=== PATIENT | female | born 1980 | race Hispanic/Latino ===

== ENCOUNTER 2018-06-21 20:15 | Emergency (ER) | payer OTHER ==
[~2018-06-21] VITALS: Ht 154.9 cm; Wt 68.5 kg
[~2018-06-21 20:15] MED LIST: DIAZEPAM5 MG PO; DULOXETINE HCL30 MG PO; FLOMAX0.4 MG PO; HYDROCODON-ACE1 EA10 PO; LORAZEPAM0.5 MG PO; PERCOCET 5-3251 EACH PO; ROBAXIN-750750 MG PO; VYVANSE30 MG PO
--- OUTSIDE RECORDS SUMMARY | 2018-06-21 20:18 | XMS ---
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 [facility] VISIT COUNT (12 MO.) 1 [facility] TOTAL 1 NOTE: Visits indicate total known visits. ED/UCC VISIT TRACKING (12 MO.) 06/21/2018 20:15 [facility] [place] TYPE: Emergency COMPLAINT: - L FLANK PAIN INPATIENT VISIT TRACKING (12 MO.) No inpatient visits to display in this time frame [email or web address]
[2018-06-21] MEDS ORDERED: IBUPROFEN200 MG PO (20:37)
[2018-06-21] MEDS ORDERED: FLOMAX0.4 MG PO (22:53)
[2018-06-21] MEDS ORDERED: PERCOCET 5-3251 EACH PO (22:53)
== END 2018-06-21 23:20 | disposition home or self-care (01) ==
LOC: ED 20:15
DX: N13.2 Hydronephrosis with renal and ureteral calculous obstruction (principal)
CPT/HCPCS: 74176; 80053; 81001; 84703; 85025; 96374; 96375; 99284-25; J1170; J1885; J2405

== ENCOUNTER 2018-11-09 05:28 | Emergency (ER) | payer OTHER ==
[~2018-11-09] VITALS: Ht 154.9 cm; Wt 68.0 kg
[~2018-11-09 05:28] MED LIST changes: +ADVIL200 MG PO; +AMITRIPTYLINE H25 MG PO; +ATIVAN1 MG PO; +CYCLOPHOSPHAMI500 MG IV; +DECADRON4 MG PO; +IBUPROFEN200 MG PO; +ONDANSETRON ODT8 MG PO; +TAXOTERE IV
--- OUTSIDE RECORDS SUMMARY | 2018-11-09 05:32 | XMS ---
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 E.D. VISIT COUNT (12 MO.) 2 [facility] TOTAL 2 NOTE: Visits indicate total known visits. ED/UCC VISIT TRACKING (12 MO.) 11/09/2018 05:29 [facility] TYPE: Emergency COMPLAINT: - LOW BACK PAIN/NO INJURY 06/21/2018 20:15 [facility] TYPE: Emergency COMPLAINT: - L FLANK PAIN DIAGNOSES: - Unspecified abdominal pain - Hydronephrosis with renal and ureteral calculous obstruction INPATIENT VISIT TRACKING (12 MO.) 09/14/2018 05:24 [facility] TYPE: Orthopedic DIAGNOSES: - Malignant neoplasm of upper-inner quadrant of left female breast 09/06/2018 13:34 Calli [facility] TYPE: Medical Surgical COMPLAINT: - BILATERAL MASTECTOMY [email or web address]
[2018-11-09] MEDS ORDERED: FAMOTIDINE40 MG PO (05:50)
[2018-11-09] MEDS ORDERED: ZOFRAN4 MG PO (07:04)
[2018-11-09] MEDS ORDERED: NORCO 5-325 TA1 EACH PO (07:04)
== END 2018-11-09 07:47 | disposition home or self-care (01) ==
LOC: ED 05:28
DX: N23 Unspecified renal colic (principal); Z85.3 Personal history of malignant neoplasm of breast; Z79.899 Other long term (current) drug therapy
CPT/HCPCS: 80053; 81001; 84703; 85025; 96374; 96375; 99284-25; J1170; J1885; J2405

== ENCOUNTER 2019-03-20 20:26 | Emergency (ER) | payer OTHER ==
[~2019-03-20] VITALS: Ht 154.9 cm; Wt 70.8 kg
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
--- OUTSIDE RECORDS SUMMARY | ~2019-03-20 | XMS | Encounter Summary ---
Demographics + + + | Address | [address] | | | [place] [address] | + + + | Home Phone | | + + + | Preferred Language | Unknown | + + + | Marital Status | | + + + | Holiness Affiliation | Unknown | + + + | Race | Unknown | + + + | Ethnic Group | Unknown | + + + Author + + + | Author | [facility] | | | and [place] | + + + | Organization | [facility] | | | and [place] | + + + | Address | Unknown | + + + | Phone | Unavailable | + + + Support + + + + + | Name | Relationship | Address | Phone | + + + + + | Martin Wetzel | ECON | [address] | | | | | [place] | | | | | [address] | | + + + + + Care Team Providers + +------+ + | 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 Estimator Name | Role | Phone | + +------+ + | Pcp, Prov Inactive | PCP | | + +------+ + Encounter Details +--------+ + + + + | Date | Type | Department | Care Team | Description | +--------+ + + + + | 07/15/ | Hospital | [facility] | Conversion | Abnormal findings on | | 2019 | Encounter | [facility] | Transaction, | diagnostic imaging | | | | MAMMOGRAPHY [address] | Provider Unknown | of breast | | | | [address] | [phone] | | | | | [place], [place] | | | | | | [address] | | | | | | [phone] | | | +--------+ + + + + Social [...] + + documented as of this encounter Medications at Time of Discharge + + + +---------+ + + | Medication | Sig | Dispensed | Refills | Start | End Date | | | | | | Date | | + + + +---------+ + + | | Take 1-2 tablets by | | 0 | 06/22/19 | | | oxyCODONE-acetaminop | mouth EVERY 4 TO 6 | | | 19 | | | hen (PERCOCET) 5-325 | HOURS NEEDED for | | | | | | mg per tablet | Pain. | | | | | + + + +---------+ + + | tamsulosin | Take 1 capsule by | | 0 | 06/22/19 | | | (FLOMAX) 0.4 mg CAPS | mouth Daily. | | | 19 | | + + + +---------+ + + | amitriptyline | | | 0 | 04/27/20 | | | (ELAVIL) 10 mg | | | | 16 | 9 | | tablet | | | | | | + + + +---------+ + + | cyclobenzaprine | Take 10 mg by mouth | | 0 | | | | (FLEXERIL) 10 mg | 3 times daily as | | | | 9 | | tablet | needed for Muscle | | | | | | | spasms. | | | | | + + + +---------+ + + | | Take 1 tablet by | | 0 | | | | HYDROcodone-acetamin | mouth every 6 hours | | | | 9 | | ophen (NORCO) 5-325 | as needed for Pain. | | | | | | mg per tablet | | | | | | + + + +---------+ + + | ibuprofen (ADVIL, | Take 400 mg by mouth | | 0 | | | | MOTRIN) 400 mg | every 6 hours as | | | | 9 | | tablet | needed for Pain. | | | | | + + + +---------+ + + | LORazepam (ATIVAN) | Take 1 tablet by | 12 | 0 | 06/06/19 | | | 1 mg tablet | mouth every 8 hours | tablet | | 17 | 9 | | | as needed for | | | | | | | Anxiety. | | | | | + + + +---------+ + + | VYVANSE 50 MG | | | 0 | 04/27/20 | | | capsule | | | | 16 | 9 | + + + +---------+ + + documented as of this encounter Progress Notes Conversion Transaction, Provider Unknown - 07/15/2018 1:10 PM PSTFormatting of this note m ight be different from the original. Nurse Progress Note by Radha Nunez RN at 07/15/181309 Author: Radha Nunez RN Service: (none) Author Type: Registered Nurse Filed: 07/15/181312 Date of Service: 07/15/181309 Status: Signed Owner Operator Tanker Truck Driver: Radha Nunez RN (Registered Nurse) Reviewed xanax discharge instructions with pt with verbalization of understanding. Paper c opy given to pt. docume nted in this encounter Plan of Treatment Not on filedocumented as of this encounter Procedures + +--------+ + + + | Procedure Name | Priori | Date/Time | Associated Diagnosis | Comments | | | ty | | | | + +--------+ + + + | TISSUE REQUEST FOR | Routin | 07/15/2018 | | Results for this | | PATHOLOGY (NON-ORD) | e | 4:40 PM | | procedure are in the | | | | PST | | results section. | + +--------+ + + + | MAMMO US GUIDED | Routin | 07/15/2018 | | Results for this | | BREAST BIOPSY | e | 2:15 PM | | procedure are in the | | | | PST | | results section. | + +--------+ + + + documented in this encounter Results Tissue Request For Pathology (07/15/2018 4:40 PM PST) + + | Specimen | + + | Soft tissue sample | | (specimen) | + + + + + | Narrative | Performed At | + + + | THIS IS AN ADDENDUM REPORT SPECIMEN(S): A LEFT BREAST AT | EXTERNAL LAB | | 8:00, 5 CM FN SPECIMEN(S): B LEFT BREAST AT 8:30, 3 CM FN SPECIMEN | | | SOURCE: A. LEFT BREAST AT 8:00, 5 CM FN B. LEFT BREAST AT 8:30, 3 CM | | | FN CLINICAL HISTORY: Multiple masses in right breast; BI-RADS 4. | | | A) Left breast US guided biopsy, 8 o'clock, 5 cm FN. B) Left | | | breast US guided biopsy, 8:30, 3 cm FN. FINAL PATHOLOGIC DIAGNOSIS: | | | A. Left breast at 8 o'clock, 5 cm from nipple, needle core biopsies: | | | - Infiltrating mammary carcinoma with the following features: - | | | Predicted Harinder histologic score: - Tubule formation score: | | | 3 of 3. - Nuclear grade score: 2 of 3. - Mitotic score: 1 | | | of 3. - Tumor grade: 2 of 3 (total score 6/9). - Longest | | | confluent tumor focus: 14 mm. - Lymphovascular invasion: | | | Suspicious for lymphovascular invasion. - Associated in situ | | | component: Present, intermediate grade DCIS, predominantly solid | | | form. - Microcalcifications: Present in neoplastic tissues. - | | | Estrogen receptor, progesterone receptor, HER-2 by FISH and Ki-67 | | | proliferating index: Pending, to be reported by addendum. B. | | | Left breast at 8:30, 3 cm from nipple, needle core biopsies: - | | | Infiltrating mammary carcinoma with the following features: - | | | Predicted Harinder histologic score: - Tubule formation score: | | | 3 of 3. - Nuclear grade score: 1 of 3. - Mitotic score: 1 | | | of 3. - Tumor grade: Low grade, 1 of 3 (total score 5/9). - | | | Longest confluent tumor focus: 9 mm. - Lymphovascular invasion: | | | Not identified. - Associated in situ component: Not | | | identified. - Microcalcifications: Not identified. - Estrogen | | | receptor, progesterone receptor, HER-2 by FISH and Ki-67 proliferating | | | index: Pending, to be reported by addendum. DS:emb:C1NR | | | MICROSCOPIC EXAMINATION: Histologic sections of all submitted blocks | | | are examined by light microscopy. These findings, together with the | | | gross examination, support the pathologic diagnosis. GROSS | | | DESCRIPTION: A. The specimen, received in formalin, labeled "left | | | breast at 8 o'clock, 5 cm FN," consists of three variegated mckeon-white | | | to mckeon-yellow fibroadipose tissue cores with a diameter of 0.2 cm and | | | a length ranging from 1.5 to 1.7 cm. The cores are dyed blue with a | | | diluted ink and entirely submitted in (A1). B. The specimen, | | | received in formalin, labeled "Wetzel," and designated "left breast | | | at 8:30, 3 cm FN," consists of three to mckeon-yellow fibroadipose tissue | | | cores with a diameter of 0.2 cm and a length ranging from 1.3 to 1.7 | | | cm. The cores are dyed blue with a diluted ink and entirely | | | submitted in (B1). The cold ischemic time for both specimens | | | cannot be determined because of lack of information and the | | | approximate time in formalin is 6 hours. am:AMB:mrf PERFORMING | | | LABORATORY: The technical component was performed by [facility] | | | [facility], [address] [place] [id number] (It Manager: | | | Bonnie Lizarraga MD; CLIA# [id number]). Professional interpretation was | | | performed by [facility], [facility], [facility] | | | [place] [address] (It Manager: Aydin | | | Morelia Deleon; CLIA#: [id number]). ADDITIONAL NOTES: | | | Immunohistochemical and/or in situ hybridization studies were | | | performed on this case with the appropriate positive controls that | | | react as expected. This test was developed and its performance | | | characteristics determined by [facility]. It has not been | | | cleared or approved by the U.S. Food and Drug Administration. The | | | FDA has determined that such clearance or approval is not necessary. | | | This test is used for clinical purposes. It should not be regarded | | | as investigational or for research. [facility] is certified | | | under the Clinical Laboratory Improvement Amendments of 1988 (CLIA) | | | as qualified to perform high complexity clinical laboratory testing. | | | This assay has not been validated for specimens that have been | | | decalcified. REASON FOR ADDENDUM: To add results of additional | | | testing. ADDENDUM COMMENT: E-Cadherin stains on both blocks A1 and | | | B1 show strong positive staining consistent with ductal | | | differentiation. All controls worked appropriately. ADDENDUM FINAL | | | PATHOLOGIC DIAGNOSIS: A. Estrogen receptor: Positive. | | | - 95% of tumor cells with strong average intensity. | | | Progesterone receptor: Positive. - 20% of tumor cells with | | | strong average intensity. Ki-67 proliferation index: | | | 11%. B. Estrogen receptor: Positive. - 95% of | | | tumor cells with strong average intensity. Progesterone | | | receptor: Positive. - 40% of tumor cells with moderate | | | average intensity. Ki-67 proliferation index: 4%. | | | DS:emb ADDENDUM MICROSCOPIC EXAMINATION: Blocks: A1, B1 The | | | cold ischemia time is unknown. The fixative is 10% NBF. The length | | | of fixation is 6 hrs, meeting ASCO/CAP guidelines. Estrogen | | | receptor clone SP1 and progesterone receptor clone 1E2 by [employer] | | | [employer] [place], [place]. Detection: HRP Polymer | | | Detection on the [employer] Immun[employer]ainer with appropriate controls. | | | Nuclear immunoreactivity of 1% or greater is considered positive by | | | ASCO/CAP guidelines. Internal control cells for ER are | | | positive for A, absent for B. Internal control cells for PA | | | are positive for A, absent for B. A Ki-67 proliferation index is | | | performed, and 500 cells are counted. Technical testing is | | | performed at [facility], [address] [place] [address] | | | (It Manager: Bonnie Lizarraga MD; CLIA# [id number]). REASON FOR | | | ADDENDUM: To add results of additional testing. ADDENDUM | | | PATHOLOGIC DIAGNOSIS: A. HER-2 protein by IHC, left breast, 8 | | | o'clock: - Equivocal; IHC score 2+. B. HER-2 protein by IHC, | | | left breast, 8:30: - Equivocal; IHC score 2+. ADDENDUM COMMENT: | | | In view of the equivocal IHC result, reflex testing for HER-2 | | | amplification by FISH has been ordered and will be reported by | | | addendum. TTP:caw ADDENDUM MICROSCOPIC EXAMINATION: Blocks: A1 | | | and B1. The fixation is 10% buffered formalin. The length of | | | fixation is 6 hours, meeting ASCO/CAP guidelines. HER-2 protein | | | expression by immunohistochemistry using the FDA-approved HER-2 | | | Pathway is performed at [facility], at the | | | request of Dr. Rico. Standardized batch control materials | | | react appropriately. The presence of tumor is confirmed. Scoring | | | is according to ASCO/CAP 2018 guidelines. A. Weak to moderate | | | complete membrane staining observed in greater than 10% of tumor | | | cells; score 2+. B. Weak to moderate complete membrane staining | | | observed in greater than 10% of tumor cells; score 2+. TTP:caw | | | Professional interpretation was performed by [facility], [id number] | | | [place] [address] (It Manager: | | | Brendan Shaffer D.O.; CLIA#: [id number]). REASON FOR ADDENDUM: To | | | add results of additional testing. ADDENDUM PATHOLOGIC DIAGNOSIS: | | | A. HER-2 gene by FISH, left breast, 8 o'clock: - Negative for | | | amplification. B. HER-2 gene by FISH, left breast 8:30: - | | | Negative for amplification. ARW:caw ADDENDUM MICROSCOPIC | | | EXAMINATION: Specimen type: Core biopsy. Blocks: A1 and B1. | | | Cold ischemia time: Unknown. The fixation is 10% buffered formalin. | | | The length of fixation is 6 hours, meeting ASCO/CAP guidelines. | | | Scoring method: Manual. Fluorescence in situ hybridization | | | (FISH) study (multiplex probe) for HER-2 gene amplification using the | | | [employer] kit was performed at [facility], | | | on a reflex basis. The assay has not been validated for | | | decalcified specimens. Controls were processed in the same batch as | | | the patient and reacted appropriately. The patient's sample was | | | considered adequate for interpretation. A. - Number | | | of nuclei counted: 40. - Number of HER-2 signals | | | counted: 106. - Number of CEP 17 signals counted: 63. | | | - Average number of HER-2 signals per cell: 2.65. | | | - Average number of CEP 17 signals per cell: 1.58. | | | - HER-2:CEP 17 ratio: 1.68. Negative for HER-2 | | | amplification (ratio less than 2.0 or average HER-2 signals per cell | | | less than 4.0 regardless of ratio). B. - Number of | | | nuclei counted: 40. - Number of HER-2 signals counted: | | | 98. - Number of CEP 17 signals counted: 62. - | | | Average number of HER-2 signals per cell: 2.45. - | | | Average number of CEP 17 signals per cell: 1.55. - | | | HER-2:CEP 17 ratio: 1.58. Negative for HER-2 amplification | | | (ratio less than 2.0 or average HER-2 signals per cell less than 4.0 | | | regardless of ratio). ARW:caw Professional interpretation was | | | performed by [facility], [id number] [place] [address] | | | [place] [address] (It Manager: eLonel BullardOSharon; CLIA#: | | | [id number]). Diagnostician: Jacek Rico MD Pathologist | | | Diagnostician: Anabel Webb MD Pathologist Diagnostician: Brendan Bentley | | | Edmund DO Pathologist Electronically Signed 07/21/2018 | | + + + + +---------+ + + | Performing | Address | City/State/Zipcode | Phone Number | | Organization | | | | + +---------+ + + | EXTERNAL LAB | | | | + +---------+ + + [facility] Ultrasound Guided Breast Biopsy (07/15/2018 2:15 PM PST) + + | Specimen | + + | | + + + + | Addenda | + + | Addendum by Kevin Barragan DO on 07/19/2018 1:32 PM ADDENDUM BEGINS Pathology | | at site A demonstrates infiltrating mammary carcinoma that is concordant with imaging | | findings. Pathology of site B demonstrates infiltrating mammary carcinoma which is | | concordant with imaging. Given that the patient had multiple sonographic lesions a | | breast MRI would be recommended for staging. Follow-up with a surgeon/oncologist | | would also be recommended. Signed by: Kevin Barragan Sign Date/Time: 07/19/2018 1:29 PM | | ADDENDUM ENDS | + + + + + | Impressions | Performed At | + + + | 1. Successful ultrasound-guided core needle biopsy, left breast 2 | | | sites, the 1st at the 8 o'clock position of the left breast 5 cm from | | | the nipple with the 2nd at the 8:30 position of the left breast 3 cm | | | from the nipple.. 2. Histology is pending. An addendum to this | | | dictation will be issued when pathology results are available with | | | recommendation for appropriate follow up including additional imaging | | | and/or intervention. Signed by: Kevin Barragan Sign Date/Time: | | | 07/15/2018 2:42 PM | | + + + + + + | Narrative | Performed At | + + + | UNILATERAL FOLLOWUP PROCEDURE DIGITAL; ULTRASOUND BREAST NEEDLE | | | BIOPSY CLINICAL INFORMATION: Left breast s/p Ultrasound guided | | | biopsy for clip placement COMPARISON: 07/05/2018 PROCEDURE: The | | | procedure, risks and benefits were explained to the patient and | | | informed consent obtained. Standard ultrasound-guided biopsy technique | | | was used. Initial survey of the breast was performed to localize | | | area of concern. A timeout was performed. Site A: Size and Location | | | of lesion: 8 o'clock left breast 5 cm from the nipple measuring | | | approximately 1.1 cm. Anesthesia: The area was anesthetized with a | | | local anesthetic. Device: Bard 12 gauge Number of Cores obtained: 3 | | | Complications: The patient tolerated the procedure without immediate | | | complication. Clip type: Micromarker Site B: Size and Location of | | | lesion: 8:30 position 3 cm from the nipple measuring 11 mm. | | | Anesthesia: The area was anesthetized with a local anesthetic. | | | Device: Bard 12 gauge Number of Cores obtained: 3 Complications: The | | | patient tolerated the procedure without immediate complication. | | | Clip type: Micromarker Post-biopsy mammogram: A post-procedural | | | mammogram was obtained to confirm the marker is at the expected site | | | of biopsy. | | + + + + + | Procedure Note | + + | Fabien, Rad Conversion - 12/20/2018 10:09 PM PDT UNILATERAL FOLLOWUP PROCEDURE DIGITAL; | | ULTRASOUND BREAST NEEDLE BIOPSYCLINICAL INFORMATION:Left breast s/p Ultrasound guided | | biopsy for clip placementCOMPARISON:07/05/2018PROCEDURE:The procedure, risks and | | benefits were explained to the patient andinformed consent obtained. Standard | | ultrasound-guided biopsy techniquewas used. Initial survey of the breast was performed | | to localize areaof concern. A timeout was performed.Site A:Size and Location of lesion: | | 8 o'clock left breast 5 cm from the nipplemeasuring approximately 1.1 cm.Anesthesia: The | | area was anesthetized with a local anesthetic.Device: Bard 12 gaugeNumber of Cores | | obtained: 3Complications: The patient tolerated the procedure without | | immediatecomplication.Clip type: MicromarkerSite B:Size and Location of lesion: 8:30 | | position 3 cm from the nipplemeasuring 11 mm.Anesthesia: The area was anesthetized with | | a local anesthetic.Device: Bard 12 gaugeNumber of Cores obtained: 3Complications: The | | patient tolerated the procedure without immediatecomplication.Clip type: | | MicromarkerPost-biopsy mammogram: A post-procedural mammogram was obtained toconfirm the | | marker is at the expected site of biopsy.IMPRESSION: 1. Successful ultrasound-guided | | core needle biopsy, left breast 2sites, the 1st at the 8 o'clock position of the left | | breast 5 cm fromthe nipple with the 2nd at the 8:30 position of the left breast 3 cmfrom | | the nipple..2. Histology is pending.An addendum to this dictation will be issued when | | pathology results areavailable with recommendation for appropriate follow up | | includingadditional imaging and/or intervention.Signed by: Lokesh Barragan Date/Time: | | 07/15/2018 2:42 PM | |measuring 11 mm. | |Anesthesia: The area was anesthetized with a local anesthetic. | |Device: Bard 12 gauge | |Number of Cores obtained: 3 | |Complications: The patient tolerated the procedure without immediate | |complication. | |Clip type: Micromarker | |Post-biopsy mammogram: A post-procedural mammogram was obtained to | |confirm the marker is at the expected site of biopsy. | |IMPRESSION: | |1. Successful ultrasound-guided core needle biopsy, left breast 2 | |sites, the 1st at the 8 o'clock position of the left breast 5 cm from | |the nipple with the 2nd at the 8:30 position of the left breast 3 cm | |from the nipple.. | |2. Histology is pending. | |An addendum to this dictation will be issued when pathology results are | |available with recommendation for appropriate follow up including | |additional imaging and/or intervention. | |Signed by: Kevin Barragan | |Sign Date/Time: 07/15/2018 2:42 PM | + + documented in this encounter Visit Diagnoses + + | Diagnosis | + + | Abnormal findings on diagnostic imaging of breast Other (abnormal) findings on | | radiological examination of breast | + + documented in this encounter
--- OUTSIDE RECORDS SUMMARY | ~2019-03-20 | XMS | Clinical Summary ---
Demographics + + + | Address | [address] | | | [place] [address] | + + + | Home Phone | | + + + | Preferred Language | Unknown | + + + | Marital Status | | + + + | Congregation Affiliation | Unknown | + + + | Race | Unknown | + + + | Ethnic Group | Unknown | + + + Author + + + | Author | [facility] (Historical as of | | | 12-24-18) | + + + | Organization | [facility] (Historical as of | | | 12-24-18) | + + + | Address | Unknown | + + + | Phone | Unavailable | + + + Support + + + + + | Name | Relationship | Address | Phone | + + + + + | David Longo | ECON | [address] | | | | | [place], [place] | | | | | [address] | | + + + + + Care Team Providers + +------+ + | Care Legal Records Manager Name | Role | Phone | + +------+ + | Ling Caballero | PP | | + +------+ + Allergies No Known Allergies Current Medications + + +--------+---------+------+------+-------+ | Prescription | Sig. | Disp. | Refills | Star | End | Statu | | | | | | t | Date | s | | | | | | Date | | | + + +--------+---------+------+------+-------+ | BIOTIN PO | Take by mouth. | | | | | Activ | | | | | | | | e | + + +--------+---------+------+------+-------+ | amitriptyline | Take 1 tablet by | 30 | 2 | 04/1 | | Activ | | (ELAVIL) 25 MG | mouth nightly for 30 | tablet | | 6/20 | | e | | tabletIndications: | days. | | | 19 | | | | Anxiety | | | | | | | + + +--------+---------+------+------+-------+ + + +-------+ +------+------+-------+ | Hospital, Clinic, or | Ordered | Route | Frequency | Star | End | Statu | | Other Facility | Dose | | | t | Date | s | | Administered | | | | Date | | | | Medication | | | | | | | + + +-------+ +------+------+-------+ | triamcinolone | 40 mg | IX | Once | 11/08 | 11/08 | Activ | | acetonide | | | | 5/20 | 5/20 | e | | (KENALOG-40) | | | | 18 | 38 | | | injection 40 | | | | | | | | mgIndications: Right | | | | | | | | shoulder pain, | | | | | | | | unspecified | | | | | | | | chronicity | | | | | | | + + +-------+ +------+------+-------+ | bupivacaine (PF) | 3 mL | IX | Once | 11/08 | 11/08 | Activ | | (MARCAINE) 0.25 % | | | | 09/26 | 20 | e | | injection 3 | | | | 18 | 38 | | | mLIndications: Right | | | | | | | | shoulder pain, | | | | | | | | unspecified | | | | | | | | chronicity | | | | | | | + + +-------+ +------+------+-------+ | triamcinolone | 40 mg | IX | Once | / | | Activ | | acetonide | | | | 0/20 | | e | | (KENALOG-40) | | | | 18 | | | | injection 40 | | | | | | | | mgIndications: Right | | | | | | | | shoulder pain, | | | | | | | | unspecified | | | | | | | | chronicity | | | | | | | + + +-------+ +------+------+-------+ | bupivacaine 0.25 % | 3 mL | IX | Once | / | | Activ | | (MARCAINE) 0.25 % | | | | 0/20 | | e | | injection (MDV) 3 | | | | 18 | | | | mLIndications: Right | | | | | | | | shoulder pain, | | | | | | | | unspecified | | | | | | | | chronicity | | | | | | | + + +-------+ +------+------+-------+ Active Problems + + + | Problem | Noted Date | + + + | Lymphoma, Hodgkin's (HCC) | 08/26/2018 | + + + | Numbness | 08/10/2018 | + + + | 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, | 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 (HCC) | | + + + | History of Hodgkin's lymphoma | 08/02/2018 | + + + | Right shoulder pain | 11/30/2017 | + + + Family History + + +------+ + | Medical History | Relation | Name | Comments | + + +------+ + | Cancer | Maternal | | | | | Grandmoth | | | | | er | | | + + +------+ + | Breast cancer | Paternal | | | | | Aunt | | | + + +------+ + | Ovarian cancer | Neg Hx | | | + + +------+ + + +------+--------+ + | Relation | Name | Status | Comments | + +------+--------+ + | Maternal Grandmother | | | | + +------+--------+ + | Paternal Aunt | | | | + +------+--------+ + Social History + +-------+ +--------+------+ | [...] + +---------+ + | Alcohol Use | Drinks/We | oz/Week | Comments | | | ek | | | + + +---------+ + | Yes | | | | + + +---------+ + + + + | Sex Assigned at | Date Recorded | | | | + + + | Not on file | | + + + Last Filed Vital Signs + + + + | Vital Sign | Reading | Time Taken | + + + + | Blood Pressure | 120/80 | 09/12/2018 1:21 PM PDT | + + + + | Pulse | 98 | 09/12/2018 1:21 PM PDT | + + + + | Temperature | 37.2 C (99 F) | 09/12/2018 1:21 PM PDT | + + + + | Respiratory Rate | 16 | 09/12/2018 1:21 PM PDT | + + + + | Oxygen Saturation | 99% | 09/12/2018 1:21 PM PDT | + + + + | Inhaled Oxygen | - | - | | Concentration | | | + + + + | Weight | 70.3 kg (155 lb 0.6 | 09/12/2018 1:21 PM PDT | | | oz) | | + + + + | Height | 153.7 cm (5' 0.5") | 09/12/2018 1:21 PM PDT | + + + + | Body Mass Index | 29.78 | 09/12/2018 1:21 PM PDT | + + + + Plan of Treatment + + + + + | Health Maintenance | Due Date | Last Done | Comments | + + + + + | Vaccine: | | | | | Dtap/Tdap/Td (1 - | 1 | | | | Tdap) | | | | + + + + + | Vaccine: | | | | | Pneumococcal 19-64 | 1 | | | | Highest Risk (1 of 3 | | | | | - PCV13) | | | | + + + + + | Cervical Cancer | | | | | Screening (Pap) | 2 | | | + + + + + | Vaccine: Influenza | | | | | (#1) | 9 | | | + + + + + Results Not on filefrom Last 3 Months Insurance + +--------+ +------+-------+---------+ | Payer | Benefi | Subscriber | Type | Phone | Address | | | t Plan | ID | | | | | | / | | | | | | | Group | | | | | + +--------+ +------+-------+---------+ | [employer] | ODS | [id number] | | | | | | HEALTH | | | | | | | PLAN | | | | | + +--------+ +------+-------+---------+ | [employer] [facility] | PROVID | [id number] | PPO | | | | PLAN | ENCE | | | | | | | HEALTH | | | | | | | PLAN | | | | | + +--------+ +------+-------+---------+ + +--------+ +--------+ + + | Guarantor Name | Accoun | Relation to | Date | Phone | Billing Address | | | t Type | Patient | of | | | | | | | | | | + +--------+ +--------+ + + | PAT LONGO | Person | Self | [birth year] | Home: | [address] | | | [place] | | 1981 | [phone] [place] | | | caren | | | [phone] | [phone] | + +--------+ +--------+ + +
--- OUTSIDE RECORDS SUMMARY | ~2019-03-20 | XMS | Encounter Summary ---
Demographics + + + | Address | [address] | | | [place] [address] | + + + | Home Phone | | + + + | Preferred Language | Unknown | + + + | Marital Status | | + + + | Druze Affiliation | Unknown | + + + | Race | Unknown | + + + | Ethnic Group | Unknown | + + + Author + + + | Author | [facility] | | | and [place] | + + + | Organization | [facility] | | | and [place] | + + + | Address | Unknown | + + + | Phone | Unavailable | + + + Support + + + + + | Name | Relationship | Address | Phone | + + + + + | Martin Wetzel | ECON | [address] | | | | | [place], [place] | | | | | [address] | | + + + + + Care Team Providers + +------+ + | Care Kraft Mill Operator Name | Role | Phone | + +------+ + | Ling Caballero | PCP | | + +------+ + Encounter Details +--------+ + + + + | Date | Type | Department | Care Team | Description | +--------+ + + + + | 12/09/ | Orders Only | [facility] | Provider, | | | 2018 | | SYSTEM GENERIC OP | [address] | | | | | [address] | [place] | | | | | [address] [place], [place] | [place] [address] | | | | | [address] | | | | | | [phone] | | | +--------+ + + + [...] Not on filedocumented as of this encounter Visit Diagnoses Not on filedocumented in this encounter"
--- OUTSIDE RECORDS SUMMARY | ~2019-03-20 | XMS | Encounter Summary ---
Demographics + + + | Address | [address] | | | [place] [address] | + + + | Home Phone | | + + + | Preferred Language | Unknown | + + + | Marital Status | | + + + | Amish Affiliation | Unknown | + + + | Race | Unknown | + + + | Ethnic Group | Unknown | + + + Author + + + | Author | [facility] | | | and [place] | + + + | Organization | [facility] | | | and [place] | + + + | Address | Unknown | + + + | Phone | Unavailable | + + + Support + + + + + | Name | Relationship | Address | Phone | + + + + + | Martin Wetzel | ECON | [address] | | | | | [place] | | | | | [address] | | + + + + + Care Team Providers + +------+ + | Care Banking Representative Name | Role | Phone | + +------+ + | Pcp, Prov Inactive | PCP | | + +------+ + Encounter Details +--------+ + + + + | Date | Type | Department | Care Team | Description | +--------+ + + + + | 07/15/ | Hospital | [facility] | Conversion | Abnormal findings on | | 2019 | Encounter | [facility] | Transaction, | diagnostic imaging | | | | [address] | Provider Unknown | of breast | | | | [address] | [phone] | | | | | [place], [place] | | | | | | [address] | | | | | | [phone] | | | +--------+ + + + [...] filedocumented as of this encounter Visit Diagnoses + + | Diagnosis | + + | Abnormal findings on diagnostic imaging of breast Other (abnormal) findings on | | radiological examination of breast | + + documented in this encounter"
--- OUTSIDE RECORDS SUMMARY | ~2019-03-20 | XMS | Clinical Summary ---
Demographics + + + | Address | [address] | | | [place] [address] | + + + | Home Phone | | + + + | Preferred Language | Unknown | + + + | Marital Status | | + + + | Temple Affiliation | Unknown | + + + | Race | Unknown | + + + | Ethnic Group | Unknown | + + + Author + + + | Author | [facility] | | | and [place] | + + + | Organization | [facility] | | | and [place] | + + + | Address | Unknown | + + + | Phone | Unavailable | + + + Support + + + + + | Name | Relationship | Address | Phone | + + + + + | Martin Wetzel | ECON | [address] | | | | | [place] | | | | | [address] | | + + + + + Care Team Providers + +------+ + | Care Oil Dispenser Name | Role | Phone | + +------+ + | Ling Caballero | PCP | | + +------+ + Allergies No Known Allergies Medications + + + +---------+------+------+-------+ | Medication | Sig | Dispensed | Refills | Star | End | Statu | | | | | | t | Date | s | | | | | | Date | | | + + + +---------+------+------+-------+ | amitriptyline | Take 10 mg by mouth | | 0 | | | Activ | | (ELAVIL) 10 mg | nightly as needed | | | | | e | | tablet | for Insomnia. | | | | | | + + + +---------+------+------+-------+ | BIOTIN 5000 PO | Take 5,000 mcg by | | 0 | | | Activ | | | mouth Daily. | | | | | e | + + + +---------+------+------+-------+ | acetaminophen | Take 2 tablets by | 60 | 0 | 05/1 | | Activ | | (TYLENOL) 500 mg | mouth every 6 hours. | tablet | | 0/20 | | e | | tablet | | | | 19 | | | + + + +---------+------+------+-------+ | bacitracin 500 | Apply to BOAZ drains | 1 | 0 | 05/1 | | Activ | | UNIT/GM ointment | daily with dressing | Applicati | | 0/20 | | e | | | changes | on | | 19 | | | + + + +---------+------+------+-------+ | docusate-senna | Take 2 tablets by | 60 | 0 | 05/1 | | Activ | | (SENOKOT-S) 50-8.6 | mouth 2 times daily. | tablet | | 0/20 | | e | | mg per tablet | | | | 19 | | | + + + +---------+------+------+-------+ | ondansetron | Take 1 tablet by | 10 | 0 | 05/0 | | Activ | | (ZOFRAN ODT) 4 mg | mouth every 6 hours | tablet | | 9/20 | | e | | disintegrating | as needed for Nausea | | | 19 | | | | tablet | or Vomiting. | | | | | | + + + +---------+------+------+-------+ | oxyCODONE | Take 1-3 tablets by | 60 | 0 | 05/0 | | Activ | | (ROXICODONE) 5 mg | mouth every 3 hours | tablet | | 9/20 | | e | | tablet | as needed for Pain. | | | 19 | | | + + + +---------+------+------+-------+ | fluconazole | Take 1 tablet by | | 0 | 04/0 | | Activ | | (DIFLUCAN) 150 mg | mouth Daily. For 1 | | | 2/20 | | e | | tablet | week | | | 19 | | | + + + +---------+------+------+-------+ | ibuprofen | Take 1 tablet by | | 0 | 03/1 | | Activ | | (ADVIL,MOTRIN) 800 | mouth 3 times daily. | | | 1/20 | | e | | MG tablet | | | | 19 | | | + + + +---------+------+------+-------+ | metroNIDAZOLE | Take 1 tablet by | | 0 | | | Activ | | (FLAGYL) 500 MG | mouth 2 times daily. | | | | | e | | tablet | For 7 days | | | | | | + + + +---------+------+------+-------+ | | Take 1-2 tablets by | | 0 | 02/1 | | Activ | | oxyCODONE-acetaminop | mouth EVERY 4 TO 6 | | | 3/20 | | e | | hen (PERCOCET) 5-325 | HOURS NEEDED for | | | 19 | | | | mg per tablet | Pain. | | | | | | + + + +---------+------+------+-------+ | | Take 1 tablet by | | 0 | 03/1 | | Activ | | sulfamethoxazole-tri | mouth 2 times daily. | | | 120 | | e | | methoprim (BACTRIM | | | | 19 | | | | DS) 800-160 mg per | | | | | | | | tablet | | | | | | | + + + +---------+------+------+-------+ | tamsulosin | Take 1 capsule by | | 0 | 02/1 | | Activ | | (FLOMAX) 0.4 mg CAPS | mouth Daily. | | | 3/20 | | e | | | | | | 19 | | | + + + +---------+------+------+-------+ | amitriptyline | amitriptyline 25 mg | | 0 | 04/1 | | Activ | | (ELAVIL) 25 mg | tablet | | | 620 | | e | | tablet | | | | 19 | | | + + + +---------+------+------+-------+ | amitriptyline | Take 1 tablet by | | 0 | 08/08 | | Activ | | (ELAVIL) 25 mg | mouth every morning. | | | 10/27 | | e | | tablet | | | | 19 | | | + + + +---------+------+------+-------+ Active Problems + + + | Problem | Noted Date | + + + | Pain in pelvis | 08/30/2018 | + + + | Lymphoma, Hodgkin's | 08/26/2018 | + + + + + | Cancer Staging: Clinical: Stage III (Hodgkin lymphoma, A - | | Asymptomatic) - Unsigned | + + + + + | Numbness | 08/10/2018 | + + + | History of Hodgkin's lymphoma | 08/02/2018 | + + + | 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, | 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 | | + + + + + | Cancer Staging: Pathologic: Stage IB (pT2, pN0, cM0, G3, ER+, | | MN+, HER2-) - Unsigned | + + + + + | Right shoulder pain | 11/30/2017 | + + + Social History + +-------+ [...] recent travel history available. | + + Last Filed Vital Signs + + + + + | Vital Sign | Reading | Time Taken | Comments | + + + + + | Blood Pressure | 117/76 | 09/17/2018 9:42 AM | | | | | PDT | | + + + + + | Pulse | 98 | 09/17/2018 9:42 AM | | | | | PDT | | + + + + + | Temperature | 37 C (98.6 F) | 09/17/2018 9:42 AM | | | | | PDT | | + + + + + | Respiratory Rate | 18 | 09/17/2018 9:42 AM | | | | | PDT | | + + + + + | Oxygen Saturation | 93% | 09/17/2018 9:42 AM | | | | | PDT | | + + + + + | Inhaled Oxygen | - | - | | | Concentration | | | | + + + + + | Weight | 70.8 kg (156 lb) | 09/14/2018 5:50 AM | | | | | PDT | | + + + + + | Height | 152.4 cm (5') | 09/14/2018 5:50 AM | | | | | PDT | | + + + + + | Body Mass Index | 30.47 | 09/14/2018 5:50 AM | | | | | PDT | | + + + + + Plan of Treatment + + + + + | Health Maintenance | Due Date | Last Done | Comments | + + + + + | Vaccine: | | | | | Pneumococcal 19-64 | 8 | | | | (1 of 3 - PCV13) | | | | + [...] | | + + + + + Implants + +--------+--------+ +--------+--------+--------+ | Implanted | Type | Area | Manufacture | Device | Shelf | Model | | | | | r | | Expira | / | | | | | | Identi | tion | Serial | | | | | | fier | Date | / Lot | + +--------+--------+ +--------+--------+--------+ | Taxonomist Anastc Imp 2.0mm - | Generi | Left: | SYNOVIS | | 10/15/ | GEM-[id number] | | [id number]: Qty: 1 | c | Breast | MICRO CO | | 2022 | 52 / | | on 09/14/2018 by Faraz, | | | ALLIANCE - | | | /[id number] | | Olivia Lopez MD at [facility] | | | [place] | | | [phone] | | [facility] | | | | | | [phone] | + +--------+--------+ +--------+--------+--------+ | Taxonomist Anastc Imp 3.0mm - | Generi | Right: | SYNOVIS | | 02/14/ | GEM-27 | | [id number]: Qty: 1 | c | | MICRO CO | | 2022 | 54 / | | on 09/14/2018 by Faraz, | | Breast | ALLIANCE - | | | /[id number] | | Olivia Lopez MD at [facility] | | | [place] | | | [phone] | | [facility] | | | | | | [address]50 | + +--------+--------+ +--------+--------+--------+ | Mesh Ultrapro [id number] - | Mesh | Anteri | JJHCS | | 08/15/ | [id number] / | | [id number]: Qty: 1 | | or: | ETHICON | | 2023 | | | on 09/14/2018 by Faraz, | | Abdome | ENDO -ANASTASIA | | | /[id number] | | Olivia Lopez MD at [facility] | | n | [phone] | | | SA0 | | [facility] | | | ETHE | | | | + +--------+--------+ +--------+--------+--------+ Results Not on filefrom Last 3 Months Insurance + +--------+ +--------+ +---------+------+ | Payer | Benefi | Subscriber | Effect | Phone | Address | Type | | | t Plan | ID | madelin | | | | | | / | | Dates | | | | | | Group | | | | | | + +--------+ +--------+ +---------+------+ | [employer] | PHP | [id number] | 12/09/19 | [phone] | | PPO | | PLAN | PEBB | | 15-Pre | 5 | | | | | PROV | | sent | | | | | | CHOICE | | | | | | + +--------+ +--------+ +---------+------+ + +--------+ +--------+ + + | Guarantor Name | Accoun | Relation to | Date | Phone | Billing Address | | | t Type | Patient | of | | | | | | | | | | + +--------+ +--------+ + + | aPt Wetzel | Person | Self | [birth year] | | [address] | | | al/Fam | | 1980 | [phone] | [place] [address] | | | caren | | | 8 (Home) | | + +--------+ +--------+ + + | Pat Wetzel | Third | Self | [birth year] | | [address] | | | [employer] | | 1980 | [address] | [place] [address] | | | Liabil | | | 8 (Home) | | | | ity | | | | | + +--------+ +--------+ + + Advance Directives + + + + + | Type | Date Recorded | Patient | Explanation | | | | Electric Utility Lineworker | | + + + + + | Power of | | | | | Sheet Metal Pattern Cutter | | | | + + + + + | Advance | 09/14/2018 5:25 | | | | Directive | AM | | | + + + + + + + + + + | Code Status | Date | Date | Comments | | | Activated | Inactivated | | + + + + + | Full Code | 09/14/2018 | 09/17/2018 | | | | 8:01 PM | 5:33 PM | | + + + + +"
--- OUTSIDE RECORDS SUMMARY | ~2019-03-20 | XMS | Clinical Summary ---
Demographics + + + | Address | [address] | | | [place] [address] | + + + | Home Phone | | + + + | Preferred Language | Unknown | + + + | Marital Status | | + + + | Religion Affiliation | Unknown | + + + | Race | Unknown | + + + | Ethnic Group | Unknown | + + + Author + + + | Author | [facility] (Historical as of | | | 12-24-18) | + + + | Organization | [facility] (Historical as of | | | 12-24-18) [...] [place], [place] | | | | | [address] | | + + + + + Care Team Providers + +------+ + | Care Hotel Concierge Name | Role | Phone | + [...] | [employer] | ODS | [id number] | | | | | | HEALTH | | | | | | | PLAN | | | | | + +--------+ +------+-------+---------+ | [employer] [facility] | PROVID | [id number] | PPO | | | | PLAN [...] | caren | | | [phone] | [phone] | + +--------+ +--------+ + +
--- OUTSIDE RECORDS SUMMARY | ~2019-03-20 | XMS | Encounter Summary ---
Demographics + + + | Address | [address] | | | [place] [address] | + + + | Home Phone | | + + + | Preferred Language | Unknown | + + + | Marital Status | | + + + | Presybeterian Affiliation | Unknown | + + + | Race | Unknown | + + + | Ethnic Group | Unknown | + + + Author + + + | Author | [facility] | | | and [place] | + + + | Organization | [facility] | | | and [place] | + + + | Address | Unknown | + + + | Phone | Unavailable | + + + Support + + + + + | Name | Relationship | Address | Phone | + + + + + | Martin Wetzel | ECON | [address] | | | | | [place], [place] | | | | | [address] | | + + + + + Care Team Providers + +------+ + | Care Freight Agent Name | Role | Phone | + +------+ + | Ling Caballero | PCP | | + +------+ + Encounter Details +--------+ + + + + | Date | Type | Department | Care Team | Description | +--------+ + + + + | 12/09/ | Orders Only | [facility] | Provider, | | | 2018 | | SYSTEM GENERIC OP | [address] | | | | | [address] | [place] | | | | | [address] [place], [place] | [place] [address] | | | | | [address] | | | | | | [phone] | | | +--------+ + + + [...]
--- OUTSIDE RECORDS SUMMARY | ~2019-03-20 | XMS | Encounter Summary ---
Demographics + + + | Address | [address] | | | [place] [address] | + + + | Home Phone | | + + + | Preferred Language | Unknown | + + + | Marital Status | | + + + | Yazidi Affiliation | Unknown | + + + | Race | Unknown | + + + | Ethnic Group | Unknown | + + + Author + + + | Author | [facility] | | | and [place] | + + + | Organization | [facility] | | | and [place] | + + + | Address | Unknown | + + + | Phone | Unavailable | + + + Support + + + + + | Name | Relationship | Address | Phone | + + + + + | Martin Wetzel | ECON | [address] | | | | | [place] | | | | | [phone] | | + + + + + Care Team Providers + +------+ + | Care Electrical Engineering Designer Name | Role | Phone | + +------+ + | Ling Caballero | PCP | | + +------+ + Reason for Visit Auth/Cert +--------+--------+ + + + + | Status | Reason | Specialty | Diagnoses / | Referred By | Referred To | | | | | Procedures | Contact | Contact | +--------+--------+ + + + + | | | | Diagnoses | | Faraz | | | | | 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 | | | | | quadrant of | | [phone] Phone: | | | | | left female | | [phone] | | | | | breast, | | Fax: | | | | | unspecified | | [phone] | | | | | estrogen | | | | | | | receptor | | | | | | | status (HCC) | | | | | | | 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 | | | | | | | left female | | | | | | | breast, | | | | | | | unspecified | | | | | | | estrogen | | | | | | | receptor | | | | | | | status (HCC) | | | | | | | [C50.212] | | | | | | | Procedures | | | | | | | UT BREAST | | | | | | | RECONSTRUC W | | | | | | | FREE FLAP | | | | | | | UT IMPLANT | | | | | | | MESH HERNIA | | | | | | | REPAIR/DEBRI | | | | | | | CARLOS | | | | | | | CLOSURE | | | | | | | RECONSTRUCTI | | | | | | | ON BREAST W | | | | | | | AUSTYN FLAP | | | +--------+--------+ + + + + Encounter Details +--------+ + + + + | Date | Type | Department | Care Team | Description | +--------+ + + + + | 09/14/ | Anesthesia | [facility] | Bassem Arthur, | | | 2019 | Event | [facility] | [address] | | | | | OP [address] | [place] [address] | | | | | [place] | [phone] | | | | | [phone] | | | | | | [phone] | Quirino Orona MD | | | | | | [address] | | | | | | [place] [address] | | | | | | [phone] | | | | | | | | +--------+ + + + + Anesthesia Record + + + + + | Procedure Name | Responsible | Anesthesia Start | Anesthesia Stop Time | | | Anesthesiologist | Time | | + + + + + | RECONSTRUCTION | Bassem Arthur MD | 09/14/18723 | 09/14/18 1636 | | BREAST W AUSTYN FLAP | | | | | (Bilateral Breast) | | | | + + + + + +----+---+ + + | Da | T | Event | Comment | | te | i | | | | | m | | | | | e | | | +----+---+ + + | 05 | 0 | | | | /0 | 7 | | | | 8/ | 1 | | | | 20 | 0 | | | | 19 | | | | +----+---+ + + | | 0 | An Checkout | Pre-use anesthesia machine/equipment checkout. | | | 7 | | | | | 1 | | | | | 5 | | | +----+---+ + + | | 0 | An Start | Reassessment prior to anesthesia induction/procedure. | | | 7 | | | | | 2 | | | | | 4 | | | +----+---+ + + | | 0 | Preoxygenat | | | | 7 | ed | | | | 3 | | | | | 2 | | | +----+---+ + + | | 0 | An | | | | 7 | Induction | | | | 3 | | | | | 5 | | | +----+---+ + + | | 0 | An | | | | 7 | Intubation | | | | 3 | | | | | 8 | | | +----+---+ + + | | 0 | Pre-Procedu | | | | 8 | ral Timeout | | | | 0 | Completed | | | | 7 | | | +----+---+ + + | | 0 | First | | | | 8 | Inc/Proc St | | | | 1 | | | | | 0 | | | +----+---+ + + | | 0 | [place] | | | | 8 | 43-degrees | | | | 1 | | | | | 2 | | | +----+---+ + + | | 0 | Quick Note | Head turned slightly right, changed to right arm NIBP cuff, | | | 9 | | alveolar recruitment maneuver completed. | | | 0 | | | | | 8 | | | +----+---+ + + | | 0 | Quick Note | Surgeon requests more paralytic | | | 9 | | | | | 3 | | | | | 1 | | | +----+---+ + + | | 0 | Quick Note | Surgeon requests additional paralytic | | | 9 | | | | | 3 | | | | | 6 | | | +----+---+ + + | | 0 | Quick Note | Additional paralytic requested by surgeon | | | 9 | | | | | 5 | | | | | 5 | | | +----+---+ + + | | 1 | Quick Note | Head turned slightly left, changed to right leg BP cuff, alveolar | | | 0 | | recruitment maneuver. | | | 0 | | | | | 3 | | | +----+---+ + + | | 1 | Quick Note | Head turned slightly right, BP cuff to right arm, alveolar | | | 0 | | recruitment manuever | | | 5 | | | | | 9 | | | +----+---+ + + | | 1 | Quick Note | Surgeons stepping out for break, patient stable. | | | 1 | | | | | 5 | | | | | 5 | | | +----+---+ + + | | 1 | Quick Note | Head turned slightly left, alveolar recruitment maneuver | | | 2 | | completed, BP cuff to right leg. | | | 0 | | | | | 2 | | | +----+---+ + + | | 1 | Quick Note | Surgeons return from break, patient stable throughout, no blood | | | 2 | | loss noted, no adverse events. | | | 2 | | | | | 1 | | | +----+---+ + + | | 1 | Quick Note | Head turned slightly right, alveolar recruitment maneuver | | | 3 | | completed, BP cuff to R arm. | | | 0 | | | | | 2 | | | +----+---+ + + | | 1 | an vinnie now | | | | 3 | | | | | 5 | | | | | 0 | | | +----+---+ + + | | 1 | Quick Note | Head turned left, BP cuff to right leg, alveolar recruitment | | | 4 | | maneuver | | | 0 | | | | | 2 | | | +----+---+ + + | | 1 | Quick Note | Head neutral, bp cuff switched to R arm, ARM | | | 4 | | | | | 5 | | | | | 9 | | | +----+---+ + + | | 1 | Breathing | | | | 6 | Spontaneous | | | | 0 | ly | | | | 0 | | | +----+---+ + + | | 1 | [place] off | | | | 6 | | | | | 0 | | | | | 4 | | | +----+---+ + + | | 1 | AN No | TOF 4/4 with sustained tetanus. | | | 6 | Residual | | | | 1 | NMB | | | | 8 | | | +----+---+ + + | | 1 | Oropharynx | | | | 6 | Suctioned | | | | 2 | | | | | 0 | | | +----+---+ + + | | 1 | Extubated | Extubated c ppv, opa in +fog in mask | | | 6 | Awake | | | | 2 | | | | | 3 | | | +----+---+ + + | | 1 | an vinnie now | To pacu, pt awake, opa dc/ed | | | 6 | | | | | 2 | | | | | 7 | | | +----+---+ + + | | 1 | An Stop | To pacu, o2 per sfm, natural patent airway, vss, pt c/o mild pain | | | 6 | | in abd, fentanyl per flowsheet, full report to Rn. Patient | | | 3 | | handed off to recovery nurse. | +----+---+ + + +------+ | Meds | +------+ + + + | Name | Total | + + + | fentaNYL | 200 mcg | + + + | HYDROmorphone | 4 mg | + + + | lidocaine 2% | 80 mg | + + + | propofol | 200 mg | + + + | propofol | 578.08 mg | + + + | rocuronium | 165 mg | + + + | rocuronium | 197,673.6 mcg | + + + | phenylephrine | 150 mcg | + + + | ondansetron | 8 mg | + + + | dexamethasone | 10 mg | + + + | sugammadex | 100 mg | + + + | ceFAZolin (ANCEF, KEFZOL) 100 | 4 g | | mg/mL IV syringe 2 g | | + + + | ketamine 50 mg/mL | 35 mg | + + + | heparin | 4,200 Units | + + + | balanced electrolytes in water | 3,100 mL | | (PLASMALYTE-148/NORMOSOL-R) | | | infusion | | + + + | albumin 5% | 500 mL | + + + + + | Name | + + | N2O Flow Rate (L/Min) | + + | O2 Flow Rate (L/Min) | + + | Insp O2 | + + | Exp N2O | + + | Exp ISO | + + | Air Flow Rate (L/Min) | + + + + | No blood administrations on file. | + + +--------+ + + + | Type | Details | Placement | Removal | +--------+ + + + | Wound | 09/14/18; 844; Incision; | 09/14/18844 by | | | | Bilateral; breast | Chey Chester RN | | +--------+ + + + | Wound | 09/14/18; 45; Incision; | 09/14/18844 by | | | | Bilateral; abdomen | Chey Chester RN | | +--------+ + + + | Drain/ | 09/14/18; 1400; #7; Left; | 09/14/18 1400 by | | | Device | posterior; breast; collapsible | Chey Chester RN | | | Site | closed device; 15F HALINA. | | | +--------+ + + + | Drain/ | 09/14/18; 1438; #2; Right; | 09/14/18 1438 by | | | Device | posterior; breast; collapsible | Chey Chester RN | | | Site | closed device; 15F HALINA. | | | +--------+ + + + | Drain/ | 09/14/18; 1541; #3; Right; | 09/14/18 1541 by | | | Device | midline; lower quadrant; | Chey Chester RN | | | Site | collapsible closed device; 15F | | | | | HALINA. | | | +--------+ + + + | Drain/ | 09/14/18; 1541; #4; medial; lower | 09/14/18 1541 by | | | Device | quadrant; collapsible closed | Chey Chester RN | | | Site | device; 15F HALINA. | | | +--------+ + + + | Drain/ | 09/14/18; 1542; #5; Left; | 09/14/18 1542 by | | | Device | midline; lower quadrant | Chey Chester RN | | | Site | | | | +--------+ + + + | Periph | 09/14/18; 0614; Right; Hand; | 09/14/18 0614 by | 09/17/18 140 by Bonnie | | anabellel | [id number] catheter system; | Tala Yo RN | Apolinar Link RN | | IV | 20 gauge, 1 in length; | | | | | intradermal injection; 09/17/18; | | | | | 1401 | | | +--------+ + + + | Airway | Placement Date: 09/14/18; | 09/14/18737 by | 09/14/181622 by | | | Placement Time: 737 (created via | Perry Horn CRNA | Genoveva Shaw | | | procedure documentation); Mask | | SIOMARA Alexander | | | Ventilation: EZ; Airway Grade: 1; | | | | | Successful Technique: video | | | | | scope; Laryngoscope Blade Size: | | | | | 3; Attempts: 1; Airway Type: | | | | | endotracheal; Size: 7; Airway | | | | | Tube Secured At: 22; Trauma: | | | | | none; Other Equipment: stylette; | | | | | Placement Check: exhaled CO2 | | | | | detection device, video | | | | | laryngoscope, bilateral chest | | | | | rise, breath sounds equal | | | | | bilaterally; Removal Date: | | | | | 09/14/18; Removal Time: 1623; | | | | | Additional Comments: Easy mask | | | | | without OPA. Grade 1 view with | | | | | Velarde 3. ETT passed between | | | | | open and clear cords without | | | | | resistance, verified with | | | | | continued etCO2 & BBS in addition | | | | | to videoscope, then taped | | | | | securely. No trauma noted. | | | | | Dentition unchanged. Extra care | | | | | taken to ensure ETT not placing | | | | | pressure on lip. | | | +--------+ + + + | Periph | 09/14/18; 0741 (created via | 09/14/18740 by | 09/15/181930 by | | eral | procedure documentation); Right; | Quirino Orona MD | Norma Correa | | IV | Lateral; Wrist; 18 gauge; | | [facility] | | | lumen/catheter not patent, | | | | | catheter/device intact; short | | | | | term use; 09/15/18; 1930 | | | +--------+ + + + | Urethr | 09/14/18; 07; indicated due to | 09/14/1845 by | 09/16/18 0640 by | | al | specific surgical procedure; All | Chey Chester RN | Norma Correa | | Cathet | elements; All elements; | | [facility] | | er | indwelling double lumen catheter; | | | | | latex; 16; None; 1; 10; 10; | | | | | other (see comments) (GENERAL | | | | | ANES.); leg bag to dependent | | | | | drainage; urethral catheter | | | | | removed, tubing intact; IMMEDIATE | | | | | URINE RETURN UPON INSERTION.; | | | | | short term use; 09/16/18; 0640 | | | +--------+ + + + | NG/OG | 09/14/18; 0746 (created via | 09/14/18 0746 by | 09/14/18 1400 by | | | procedure documentation); | Perry Horn CRNA | Criss Andre RN | | | orogastric; 18; 55; center mouth; | | | | | other (see comments); stomach; | | | | | gastric content aspiration, | | | | | gastric decompression; | | | | | Easy/atraumatic insertion to | | | | | intermittent suction. (+) | | | | | bilious substance return. ; | | | | | 09/14/18; 1400 | | | +--------+ + + + | Drain/ | 09/14/18; 1400; #6; Left; | 09/14/18 1400 by | 09/17/18 0900 by Bonnie | | Device | posterior; breast; collapsible | hCey Chester RN | Apolinar Link RN | | Site | closed device; 15F HALINA.; | | | | | 09/17/18; 0900 | | | +--------+ + + + | Drain/ | 09/14/18; 1438; #1; Right; | 09/14/18 1438 by | 09/17/18 0900 by Bonnie | | Device | posterior; breast; collapsible | Chey Chester RN | Apolinar Link RN | | Site | closed device; 15F HALINA.; | | | | | 09/17/18; 0900 | | | +--------+ + + + documented in this encounter Social History + +-------+ +--------+------+ | Tobacco [...] | + +--------+ + + + | ANE PERIPHERAL IV | Routin | 09/14/2018 | | Results for this | | LINE NOTE | e | 8:40 AM | | procedure are in the | | | | PDT | | results section. | + +--------+ + + + | ANE NASO/ORAL TUBE | Routin | 09/14/2018 | | Results for this | | NOTE | e | 8:39 AM | | procedure are in the | | | | PDT | | results section. | + +--------+ + + + | ANE AIRWAY NOTE | Routin | 09/14/2018 | | Results for this | | | e | 8:38 AM | | procedure are in the | | | | PDT | | results section. | + +--------+ + + + documented in this encounter Results PIV (09/14/2018 8:40 AM PDT) + + + | Narrative | Performed At | + + + | Perry Horn CRNA 09/14/2018 8:40 Intravenous Line | | | Placement 09/14/2018 7:41 Indication: routine Preparation: alcohol | | | patient was: under GA Side: right Orientation: lateral Vein | | | location: wrist Size: 18 g Localization technique: landmark | | | Securement: transparent dressing and tape Placed by: Quirino Muñoz | | | MD Adwoa Please see intraoperative grid for any additional | | | medication documentation. | | + + + + + | Procedure Note | + + | Perry Horn CRNA - 09/14/2018 8:40 AM PDT | | Intravenous Line Placement | | | | 09/14/2018 7:41 | | Indication: routine | | Preparation: alcohol | | patient was: under GA | | Side: right | | Orientation: lateral | | Vein location: wrist | | Size: 18 g | | Localization technique: landmark | | Securement: transparent dressing and tape | | Placed by: Quirino Orona MD | | | | | | Please see intraoperative grid for any additional medication documentation. | + + NG/OG (09/14/2018 8:39 AM PDT) + + + | Narrative | Performed At | + + + | Perry Horn CRNA 09/14/2018 8:40 naso/orogastric Placement | | | Note 09/14/2018 7:46 Indication: gastric decompression, gastric | | | content aspiration and per surgeon request Tube type: Orogastric | | | Size: 18 Fr Depth: 55 cm Location: mouth Pain prevention: general | | | anesthesia Destination: stomach Tube position checked by: content | | | aspiration Suction: intermittent suction Trauma: none Placed by: | | | Perry Horn CRNA Comments: Easy/atraumatic insertion to | | | intermittent suction. (+) bilious substance return. | | | Please see intraoperative grid for any additional medication | | | documentation. | | + + + + -+ | Procedure Note | + -+ | Perry Horn CRNA - 09/14/2018 8:39 AM PDT naso/orogastric Placement Note09/14/2018 | | 7:46Indication: gastric decompression, gastric content aspiration and per surgeon | | requestTube type: OrogastricSize: 18 FrDepth: 55 cmLocation: mouthPain prevention: | | general anesthesiaDestination: stomachTube position checked by: content | | aspirationSuction: intermittent suctionTrauma: nonePlaced by: Perry Horn | | SIOMARAComments: Easy/atraumatic insertion to intermittent suction. (+) bilious substance | | return.Please see intraoperative grid for any additional medication documentation. | |Location: mouth | |Pain prevention: general anesthesia | |Destination: stomach | |Tube position checked by: content aspiration | |Suction: intermittent suction | |Trauma: none | |Placed by: Perry Horn CRNA | |Comments: Easy/atraumatic insertion to intermittent suction. (+) bilious substance return. | | | | | | | |Please see intraoperative grid for any additional medication documentation. | + -+ Airway (09/14/2018 8:38 AM PDT) + + + | Narrative | Performed At | + + + | Perry Horn CRNA 09/14/2018 8:39 Anesthesia Airway | | | Placement 09/14/2018 7:38 Preprocedure check: patient identified, | | | suction, airway equipment checked, oxygen, airway assessed and | | | patient reassessment prior to induction Rapid Sequence Induction: no | | | Mask ventilation: easy Successful technique: videoscope | | | Laryngoscope blade size: 3 Airway grade: 1 (Full view of glottis) | | | Other equipment: stylette Attempts: 1 Airway type: endotracheal | | | Size: 7 Cuffed: cuffed Route, reference point: right side of mouth | | | Tube depth: 22 cm Tube secured with: adhesive tape Trauma: none | | | Tube placement verification: bilateral chest rise, equal bilateral | | | breath sounds, video laryngoscope and carbon dioxide detection | | | Performing provider: Perry Horn CRNA Comments: Easy mask | | | without OPA. Grade 1 view with Velarde 3. ETT passed between open | | | and clear cords without resistance, verified with continued etCO2 & | | | BBS in addition to videoscope, then taped securely. No trauma noted. | | | Dentition unchanged. Extra care taken to ensure ETT not placing | | | pressure on lip. Please see intraoperative grid for any | | | additional medication documentation. | | + + + + + | Procedure Note | + + | Perry Horn CRNA - 09/14/2018 8:38 AM PDT Anesthesia Airway Placement09/14/2018 | | 7:38Preprocedure check: patient identified, suction, airway equipment checked, oxygen, | | airway assessed and patient reassessment prior to inductionRapid Sequence Induction: | | noMask ventilation: easySuccessful technique: videoscopeLaryngoscope blade size: 3 | | Airway grade: 1 (Full view of glottis)Other equipment: styletteAttempts: 1Airway type: | | endotrachealSize: 7Cuffed: cuffedRoute, reference point: right side of mouthTube depth: | | 22 cmTube secured with: adhesive tapeTrauma: noneTube placement verification: bilateral | | chest rise, equal bilateral breath sounds, video laryngoscope and carbon dioxide | | detectionPerforming provider: Perry Horn CRNAComments: Easy mask without OPA. Grade 1 | | view with Velarde 3. ETT passed between open and clear cords without resistance, | | verified with continued etCO2 & BBS in addition to videoscope, then taped securely. No | | trauma noted. Dentition unchanged. Extra care taken to ensure ETT not placing pressure | | on lip.Please see intraoperative grid for any additional medication documentation. | |Cuffed: cuffed | |Route, reference point: right side of mouth | |Tube depth: 22 cm | |Tube secured with: adhesive tape | |Trauma: none | |Tube placement verification: bilateral chest rise, equal bilateral breath sounds, video lar yngoscope and carbon dioxide detection | |Performing provider: Perry Horn CRNA | | | |Comments: Easy mask without OPA. Grade 1 view with Velarde 3. ETT passed between open and c lear cords without resistance, verified with continued etCO2 & BBS in addition to videoscope , then taped securely. No trauma | |noted. Dentition unchanged. Extra care taken to ensure ETT not placing pressure on lip. | | | | | | | |Please see intraoperative grid for any additional medication documentation. | + + documented in this encounter Visit Diagnoses Not on filedocumented in this encounter Administered Medications + +---------+ +------+------+------+ | Medication Order | MAR | Action | Dose | Rate | Site | | | Action | Date | | | | + +---------+ +------+------+------+ | albumin 5% IVPB Intravenous, | New Bag | 09/15/19 | | | | | Administer over 1 Hours, | | 19 11:45 | | | | | CONTINUOUS PRN, Starting Wed | | AM PDT | | | | | 09/14/18 at 1145, Anesthesia | | | | | | | Intra-op | | | | | | + +---------+ +------+------+------+ +---+---+ | | | +---+---+ + +---------+ +---+---+---+ | balanced electrolytes in water | New Bag | 09/15/19 | | | | | (PLASMALYTE-148/NORMOSOL-R) | | 19 3:30 | | | | | infusion at 10-100 mL/hr, | | PM PDT | | | | | Intravenous, CONTINUOUS, Starting | | | | | | | 09/14/18 at 0615, TKO. Use | | | | | | | this instead of LR if both are | | | | | | | ordered., Pre-op | | | | | | + +---------+ +---+---+---+ +---------+ +---+---+---+ | New Bag | 09/15/19 | | | | | | 19 12:45 | | | | | | PM PDT | | | | +---------+ +---+---+---+ | New Bag | 09/15/19 | | | | | | 19 8:36 | | | | | | AM PDT | | | | +---------+ +---+---+---+ +---+---+ | | | +---+---+ + +-------+ +-----+---+---+ | ceFAZolin (ANCEF, KEFZOL) 100 | Given | 09/15/19 | 2 g | | | | mg/mL IV syringe 2 g 2 g, | | 19 12:01 | | | | | Intravenous, Administer over 30 | | PM PDT | | | | | Minutes, Prior to Incision, | | | | | | | Starting 09/14/18 at 0547, For | | | | | | | 1 dose, Pre-op, Indications: | | | | | | | Surgical Prophylaxis | | | | | | + +-------+ +-----+---+---+ +-------+ +-----+---+---+ | Given | 09/15/19 | 2 g | | | | | 19 8:02 | | | | | | AM PDT | | | | +-------+ +-----+---+---+ +---+---+ | | | +---+---+ + +-------+ +-------+---+---+ | dexamethasone (DECADRON) 10 | Given | 09/15/19 | 10 mg | | | | mg/mL injection Intravenous, | | 19 7:42 | | | | | PRN, Starting Wed09/14/18 at 0742, | | AM PDT | | | | | Anesthesia Intra-op | | | | | | + +-------+ +-------+---+---+ +---+---+ | | | +---+---+ + +-------+ +--------+---+---+ | fentaNYL (PF) injection | Given | 09/15/19 | 50 mcg | | | | Intravenous, PRN, Starting Wed | | 19 4:34 | | | | | 09/14/18 at 0735, Anesthesia | | PM PDT | | | | | Intra-op | | | | | | + +-------+ +--------+---+---+ +-------+ +--------+---+---+ | Given | 09/15/19 | 50 mcg | | | | | 19 4:00 | | | | | | PM PDT | | | | +-------+ +--------+---+---+ | Given | 09/15/19 | 50 mcg | | | | | 19 7:38 | | | | | | AM PDT | | | | +-------+ +--------+---+---+ +---+---+ | | | +---+---+ + +-------+ +-------+---+---+ | heparin 1,000 units/mL | Given | 09/15/19 | 700 | | | | injection Intravenous, PRN, | | 19 1:24 | Units | | | | Starting 09/14/18 at 1223, | | PM PDT | | | | | Anesthesia Intra-op | | | | | | + +-------+ +-------+---+---+ +-------+ +--------+---+---+ | Given | 09/15/19 | 3,500 | | | | | 19 12:23 | Units | | | | | PM PDT | | | | +-------+ +--------+---+---+ +---+---+ | | | +---+---+ + +-------+ +--------+---+---+ | HYDROmorphone (DILAUDID) 2 | Given | 09/15/19 | 0.8 mg | | | | mg/mL injection Intravenous, | | 19 10:46 | | | | | MENDEL, Starting 09/14/18 at 0751, | | AM PDT | | | | | Anesthesia Intra-op | | | | | | + +-------+ +--------+---+---+ +-------+ +--------+---+---+ | Given | 09/15/19 | 0.6 mg | | | | | 19 10:34 | | | | | | AM PDT | | | | +-------+ +--------+---+---+ | Given | 09/15/19 | 0.6 mg | | | | | 19 10:15 | | | | | | AM PDT | | | | +-------+ +--------+---+---+ +---+---+ | | | +---+---+ + +-------+ +-------+---+---+ | ketamine 50 mg/mL injection | Given | 09/15/19 | 35 mg | | | | Intravenous, PRN, Starting Wed | | 19 11:43 | | | | | 09/14/18 at 1143, Anesthesia | | AM PDT | | | | | Intra-op | | | | | | + +-------+ +-------+---+---+ +---+---+ | | | +---+---+ + +-------+ +-------+---+---+ | lidocaine (PF) 2% injection | Given | 09/15/19 | 80 mg | | | | Intravenous, PRN, Starting Wed | | 7:35 | | | | | 09/14/18 at 0735, Anesthesia | | AM PDT | | | | | Intra-op | | | | | | + +-------+ +-------+---+---+ +---+---+ | | | +---+---+ + +-------+ +------+---+---+ | ondansetron (ZOFRAN) injection | Given | 09/15/19 | 4 mg | | | | Intravenous, PRN, Starting Wed | | 19 1:44 | | | | | 09/14/18 at 0745, Anesthesia | | PM PDT | | | | | Intra-op | | | | | | + +-------+ +------+---+---+ +-------+ +------+---+---+ | Given | 09/15/19 | 4 mg | | | | | 19 7:45 | | | | | | AM PDT | | | | +-------+ +------+---+---+ +---+---+ | | | +---+---+ + +-------+ +---------+---+---+ | phenylephrine (TERRENCE-SYNEPHRINE, | Given | 09/15/19 | 150 mcg | | | | VAZCULEP) 10 mg/mL injection | | 19 7:43 | | | | | Intravenous, PRN, Starting Wed | | AM PDT | | | | | 09/14/18 at 0743, Anesthesia | | | | | | | Intra-op | | | | | | + +-------+ +---------+---+---+ +---+---+ | | | +---+---+ + +-------+ +-------+---+---+ | propofol (DIPRIVAN) injection | Given | 09/15/19 | 50 mg | | | | Intravenous, PRN, Starting Wed | | 19 7:37 | | | | | 09/14/18 at 0735, Anesthesia | | AM PDT | | | | | Intra-op | | | | | | + +-------+ +-------+---+---+ +-------+ +--------+---+---+ | Given | 09/15/19 | 150 mg | | | | | 19 7:35 | | | | | | AM PDT | | | | +-------+ +--------+---+---+ +---+---+ | | | +---+---+ + + + + +-------+---+ | propofol (DIPRIVAN) injection | Rate/Dos | 09/15/19 | 20 | 8.5 | | | Intravenous, CONTINUOUS PRN, | e Change | 19 3:45 | mcg/kg/m | mL/hr | | | Starting 09/14/18 at 1142, | | PM PDT | in | | | | Anesthesia Intra-op | | | | | | + + + + +-------+---+ + + + +-------+---+ | Rate/Dose Change | 09/15/19 | 50 | 21.2 | | | | 19 2:35 | mcg/kg/m | mL/hr | | | | PM PDT | in | | | + + + +-------+---+ | New Bag | 09/15/19 | 25 | 10.6 | | | | 19 11:42 | mcg/kg/m | mL/hr | | | | AM PDT | in | | | + + + +-------+---+ +---+---+ | | | +---+---+ + + + + +-------+---+ | rocuronium (ZEMURON) injection | Rate/Dos | 09/15/19 | 4 | 1.7 | | | Intravenous, CONTINUOUS PRN, | e Change | 19 12:46 | mcg/kg/m | mL/hr | | | Starting 09/14/18 at 0754, | | PM PDT | in | | | | Anesthesia Intra-op | | | | | | + + + + +-------+---+ + + + +-------+---+ | Rate/Dose Change | 09/15/19 | 6 | 2.5 | | | | 19 12:13 | mcg/kg/m | mL/hr | | | | PM PDT | in | | | + + + +-------+---+ | Rate/Dose Change | 09/15/19 | 8 | 3.4 | | | | 19 12:06 | mcg/kg/m | mL/hr | | | | PM PDT | in | | | + + + +-------+---+ +---+---+ | | | +---+---+ + +-------+ +-------+---+---+ | rocuronium (ZEMURON) injection | Given | 09/15/19 | 10 mg | | | | Intravenous, PRN, Starting Wed | | 19 3:10 | | | | | 09/14/18 at 0736, Anesthesia | | PM PDT | | | | | Intra-op | | | | | | + +-------+ +-------+---+---+ +-------+ +-------+---+---+ | Given | 09/15/19 | 20 mg | | | | | 19 11:03 | | | | | | AM PDT | | | | +-------+ +-------+---+---+ | Given | 09/15/19 | 20 mg | | | | | 19 10:15 | | | | | | AM PDT | | | | +-------+ +-------+---+---+ +---+---+ | | | +---+---+ + +-------+ +--------+---+---+ | sugammadex (BRIDION) injection | Given | 09/15/19 | 100 mg | | | | Intravenous, PRN, Starting Wed | | 19 4:17 | | | | | 09/14/18 at 1617, Anesthesia | | PM PDT | | | | | Intra-op | | | | | | + +-------+ +--------+---+---+ +---+---+ | | | +---+---+ documented in this encounter"
--- OUTSIDE RECORDS SUMMARY | ~2019-03-20 | XMS | Encounter Summary ---
Demographics + + + | Address | [address] | | | [place] [address] | + + + | Home Phone | | + + + | Preferred Language | Unknown | + + + | Marital Status | | + + + | Protestant Affiliation | Unknown | + + + | Race | Unknown | + + + | Ethnic Group | Unknown | + + + Author + + + | Author | [facility] | | | and [place] | + + + | Organization | [facility] | | | and [place] | + + + | Address | Unknown | + + + | Phone | Unavailable | + + + Support + + + + + | Name | Relationship | Address | Phone | + + + + + | Martin Wetzel | ECON | [address] | | | | | [place] | | | | | [address] | | + + + + + Care Team Providers + +------+ + | Care Prism Inspector Name | Role | Phone | + +------+ + | Pcp, Prov Inactive | PCP | | + +------+ + Encounter Details +--------+ + + + + | Date | Type | Department | Care Team | Description | +--------+ + + + + | 07/05/ | Hospital | [facility] | Conversion | Unspecified lump in | | 2019 | Encounter | [facility] | Transaction, | the left breast, | | | | MAMMOGRAPHY [address] | Provider Unknown | lower outer quadrant | | | | [address] | [phone] | | | | | [place], [place] | | | | | | [address] | | | | | | [phone] | | | +--------+ + + + [...] | + +--------+ + + + | US BREAST LIMITED | Routin | 07/05/2018 | | Results for this | | LEFT | e | 2:37 PM | | procedure are in the | | | | PST | | results section. | + +--------+ + + + documented in this encounter Results US Breast Limited Left (07/05/2018 2:37 PM PST) + + | Specimen | + + | | + + + + + | Impressions | Performed At | + + + | 1. Multifocal nonuniform tissue, distributions above in the left | | | breast. Some of these likely explain the patient's finding on CT | | | Discussed options with patient to include surveillance and | | | MRI-findings are likely but not proven to be a sequelae of the | | | patient's posttraumatic event. However, ultrasound-guided biopsy of | | | at least the finding in the 8 o'clock position 5 cm from the left | | | nipple is recommended, and considering an ancillary/secondary target | | | at the time of biopsy may be reasonable to consider BIRADS | | | ASSESSMENT: CATEGORY 4 / Suspicious abnormality - biopsy should be | | | considered. (4A - Low suspicion) RECOMMENDATION: Ultrasound-guided | | | biopsy as above Per MQSA guidelines, a letter of notification will be | | | sent to the patient. Per National MQSA guidelines, a letter of | | | notification will be sent to the patient. Signed by: Anselmo Knight | | German Deleon Date/Time: 07/05/2018 3:33 PM | | + + + + + + | Narrative | Performed At | + + + | [facility] BILATERAL; ULTRASOUND BREAST | | | LIMITED UNILATERAL LEFT CLINICAL INFORMATION: Left breast lump, | | | right breast screening, Baseline mammogram. Patient also has a | | | remote history of Hodgkin's lymphoma, cervical cancer and trauma to | | | the chest wall within the past 2 years COMPARISON: Outside CT from | | | 06/2018 PROCEDURE: Digital diagnostic mammographic imaging was | | | performed. 3-D tomosynthesis imaging was performed. Computerized | | | aided detection software was utilized. A targeted breast ultrasound | | | was performed. MAMMOGRAPHIC FINDINGS: Breast Composition: Scattered | | | fibroglandular densities. Note scattered calcifications which are at | | | most regional in the medial aspect of the posterior bilateral | | | breasts. No pleomorphic cluster or grouping Some scarring noted | | | with MediPort was at the margin of the left CC film, medial aspect | | | In the mid 3rd of the outer left breast on the CC view on 3D image | | | there is a small nodule discernible. About 6-7 mm in size In | | | the medial inferior quadrant of the mid posterior left breast there | | | is asymmetric nonuniform tissue, at least 3 foci-which matches | | | ultrasound findings below Other findings are more physiologic and | | | symmetric in appearance. No skin thickening, no lymphadenopathy. | | | The axilla lymph nodes seem normal SONOGRAPHIC FINDINGS: Breast | | | ultrasound: A limited ultrasound of the left breast tissue was | | | performed. 1. Centrally hypoechoic tissue with a rind of increased | | | echoes in the 8 o'clock position 5 cm from the left nipple. | | | Measures about 1.4 x 1.3 x 1.6 cm 2. Similar appearing tissue in | | | the 8 o'clock position 8 cm from the nipple measures 1.7 major axis, | | | not optimally defined on orthogonal imaging 3. Miniscule cystic | | | finding in the 4 o'clock position 4 cm from the left nipple is not | | | thought significant 4. In the 8:30 position, 3 cm from the left | | | nipple-focus of hyperechoic tissue which measures about 12 mm and | | | diameter, appears to potentially cross tissue planes Axillary lymph | | | nodes are normal in appearance | | + + + + + | Procedure Note | + + | Fabien, Rad Conversion - 12/20/2018 10:09 PM [facility]AMMO[facility] | | BILATERAL; ULTRASOUND BREAST LIMITEDUNILATERAL LEFTCLINICAL INFORMATION:Left breast | | lump, right breast screening, Baseline mammogram. Patientalso has a remote history of | | Hodgkin's lymphoma, cervical cancer andtrauma to the chest wall within the past 2 | | yearsCOMPARISON:Outside CT from 06/2018PROCEDURE:Digital diagnostic mammographic imaging | | was performed. 3-Dtomosynthesis imaging was performed. Computerized aided | | detectionsoftware was utilized.A targeted breast ultrasound was performed.MAMMOGRAPHIC | | FINDINGS:Breast Composition: Scattered fibroglandular densities.Note scattered | | calcifications which are at most regional in the medialaspect of the posterior bilateral | | breasts. No pleomorphic cluster orgroupingSome scarring noted with MediPort was at the | | margin of the left CCfilm, medial aspectIn the mid 3rd of the outer left breast on the | | CC view on 3D image25/79 there is a small nodule discernible. About 6-7 mm in sizeIn | | the medial inferior quadrant of the mid posterior left breast thereis asymmetric | | nonuniform tissue, at least 3 foci-which matchesultrasound findings belowOther findings | | are more physiologic and symmetric in appearance.No skin thickening, no lymphadenopathy. | | The axilla lymph nodes seemnormalSONOGRAPHIC FINDINGS:Breast ultrasound: A limited | | ultrasound of the left breast tissue wasperformed.1. Centrally hypoechoic tissue with a | | rind of increased echoes in the8 o'clock position 5 cm from the left nipple. Measures | | about 1.4 x 1.3x 1.6 cm2. Similar appearing tissue in the 8 o'clock position 8 cm from | | thenipple measures 1.7 major axis, not optimally defined on orthogonalimaging3. | | Miniscule cystic finding in the 4 o'clock position 4 cm from theleft nipple is not | | thought significant4. In the 8:30 position, 3 cm from the left nipple-focus | | ofhyperechoic tissue which measures about 12 mm and diameter, appears topotentially | | cross tissue planesAxillary lymph nodes are normal in appearanceIMPRESSION: 1. | | Multifocal nonuniform tissue, distributions above in the leftbreast. Some of these | | likely explain the patient's finding on CTDiscussed options with patient to include | | surveillance and MRI-findingsare likely but not proven to be a sequelae of the | | patient'sposttraumatic event.However, ultrasound-guided biopsy of at least the finding | | in the 8o'clock position 5 cm from the left nipple is recommended, andconsidering an | | ancillary/secondary target at the time of biopsy may bereasonable to considerBIRADS | | ASSESSMENT: CATEGORY 4 / Suspicious abnormality - biopsy shouldbe considered. (4A - Low | | suspicion)RECOMMENDATION: Ultrasound-guided biopsy as abovePer MQSA guidelines, a letter | | of notification will be sent to thepatient.Per National MQSA guidelines, a letter of | | notification will be sent tothe patient.Signed by: Rachel Knight Date/Time: | | 07/05/2018 3:33 PM | |nipple measures 1.7 major axis, not optimally defined on orthogonal | |imaging | |3. Miniscule cystic finding in the 4 o'clock position 4 cm from the | |left nipple is not thought significant | |4. In the 8:30 position, 3 cm from the left nipple-focus of | |hyperechoic tissue which measures about 12 mm and diameter, appears to | |potentially cross tissue planes | |Axillary lymph nodes are normal in appearance | |IMPRESSION: | |1. Multifocal nonuniform tissue, distributions above in the left | |breast. Some of these likely explain the patient's finding on CT | |Discussed options with patient to include surveillance and MRI-findings | |are likely but not proven to be a sequelae of the patient's | |posttraumatic event. | |However, ultrasound-guided biopsy of at least the finding in the 8 | |o'clock position 5 cm from the left nipple is recommended, and | |considering an ancillary/secondary target at the time of biopsy may be | |reasonable to consider | |BIRADS ASSESSMENT: CATEGORY 4 / Suspicious abnormality - biopsy should | |be considered. (4A - Low suspicion) | |RECOMMENDATION: Ultrasound-guided biopsy as above | |Per MQSA guidelines, a letter of notification will be sent to the | |patient. | |Per National MQSA guidelines, a letter of notification will be sent to | |the patient. | |Signed by: German Knight | |Sign Date/Time: 07/05/2018 3:33 PM | + + documented in this encounter Visit Diagnoses + + | Diagnosis | + + | Unspecified lump in the left breast, lower outer quadrant | + + documented in this encounter"
--- OUTSIDE RECORDS SUMMARY | ~2019-03-20 | XMS | Encounter Summary ---
Demographics + + + | Address | [address] | | | [place] [address] | + + + | Home Phone | | + + + | Preferred Language | Unknown | + + + | Marital Status | | + + + | Jehovah'S Witness Affiliation | Unknown | + + + | Race | Unknown | + + + | Ethnic Group | Unknown | + + + Author + + + | Author | [facility] | | | and [place] | + + + | Organization | [facility] | | | and [place] | + + + | Address | Unknown | + + + | Phone | Unavailable | + + + Support + + + + + | Name | Relationship | Address | Phone | + + + + + | Martin Wetzel | ECON | [address] | | | | | [place] | | | | | [address] | | + + + + + Care Team Providers + +------+ + | Care Staff Counsel Name | Role | Phone | + [...] | | | quadrant of | | [phone] Phone: | | | | | left female | | [phone] | | | | | breast, | | Fax: | | | | | unspecified | | [phone] | | | | | estrogen | [...] | | | | | | | [place] BREAST | | | | | | | RECONSTRUC W | | | | | | | FREE FLAP | | | | | | | VT IMPLANT | | | | | | [...] + + + + | 09/14/ | Hospital | [facility] | Olivia Dallas, | | | 2019 - | Encounter | [facility] | MD Cailin [facility] | | | | | ORTHOPEDICS [address] | [place] [address] | | | 09/17/ | | [address] [place], [place] | [phone] | | | 2018 | | [address] | | | | | | [phone] | | | +--------+ + + + [...] + + documented in this encounter Discharge Summaries Olivia Dallas MD - 09/18/2018 8:19 PM PDTAdmission Diagnosis: 1. Acquired absence of bilateral breasts 2. Personal history of left breast cancer Discharge Diagnosis: Same Procedure(s): Bilateral breast reconstruction with abdominal free flaps Reinforcement of the abdomen with mesh Hospital Course: The patient had an uncomplicated hospital course. she was able to resume PO intake on the first day after surgery. At that time she was weaned off of IVF and was transitioned to or al pain medications. On post-operative day 2 the patient began to improve her mobility and was able to have her camargo removed. By POD # 3 the patient was independently ambulatory, taking good oral intake and her pain w as well controlled on oral pain medications. she was then determined to be ready for discha rge home. Discharge Plan: The patient will follow instructions for drain and wound care as per discharge orders. she will follow-up in my office in 6 days. she will call in the interim if questions or concer ns arise. Becky Awan MD - 09/17/2018 3:18 PM PDTFormatting of this note might be different from the origi nal. Physician Discharge Summary Patient ID: Pat Wetzel [id number] 37 y.o. 1980 Admit date: 09/14/2018 Discharge date and time: 09/17/2018 15:18 Admitting Physician: Olivia Dallas MD Discharge Physician: Gena Alatorre Admission Diagnoses: Malignant neoplasm of upper-inner quadrant of left female breast, unsp ecified estrogen receptor status (HCC) [C50.212] Discharge Diagnoses: same Admission Condition: good Discharged Condition: good Indication for Admission: post-surgical free flap management Hospital Course: Ms. Wetzel was admitted following bilateral free flap breast reconstructi on. She progressed well over the next 3 days with progress to a general diet, camargo removal, and ambulation. At the time of discharge, she is ambulating independently, tolerating a gen eral diet, and her pain is adequately controlled with oral medication. She was discharged on POD 3. Consults: none Significant Diagnostic Studies: labs: post op hct stable Treatments: anticoagulation: LMW heparin and procedures: as above Discharge Exam: Awake, alert, responds appropriately to questions Unlabored breathing Breast and abdominal Incisions c/d/i Breasts soft and warm, NAC viable, minimal ecchymoses JPs ss fluid Flaps buried Disposition: home Patient Instructions: Discharge Medications New Medications Details acetaminophen 500 mg tablet Notes to patient: Can take next at 8pm Take 2 tablets by mouth every 6 hours. aka: TYLENOL bacitracin 500 UNIT/GM ointment Apply to BOAZ drains daily with dressing changes celecoxib 200 mg capsule Take 1 capsule by mouth 2 times daily for 5 days. aka: CELEBREX docusate-senna 50-8.6 mg per tablet Take 2 tablets by mouth 2 times daily. aka: SENOKOT-S gabapentin 100 mg capsule Take 2 capsules by mouth 3 times daily for 5 days. aka: NEURONTIN ondansetron 4 mg disintegrating tablet Take 1 tablet by mouth every 6 hours as needed for Nausea or Vomiting. aka: ZOFRAN ODT oxyCODONE 5 mg tablet Take 1-3 tablets by mouth every 3 hours as needed for Pain. aka: ROXICODONE Unchanged Medications Details amitriptyline 10 mg tablet Take 10 mg by mouth nightly as needed for Insomnia. aka: ELAVIL BIOTIN 5000 PO Take 5,000 mcg by mouth Daily. Discontinued Medications docusate sodium 100 mg capsule aka: COLACE HYDROcodone-acetaminophen 5-325 mg per tablet aka: NORCO ketorolac 10 MG tablet aka: TORADOL scopolamine 1 mg/3 days patch aka: TRANSDERM-SCOP Activity: no lifting, Driving, or Strenuous exercise until further notice. Diet: regular diet Wound Care: as directed Follow-up with Dr. Dallas as scheduled. Signed: Gena Alatorre MD 09/17/2018 15:18 ypertBonnie RN - 09/17/2018 2:50 PM PDTDC home to [place], [place]. Ride provided by . Nausea has subsid ed and she feels ready to dc home. has been instructed and is proficient at drain ca re. Reviewed after visit summary, DC instructions and follow up instructions. Questions answ ered and verbalized understanding. Rx filled by outpatient pharmacy and picked up by . Electronically signed by: Bonnie Link RN 09/17/2018 14:52 documented in this encounter Discharge Instructions Instructions Olivia Dallas MD - 09/14/2018DIEP & MS-TRAM FLAP BREAST RECONSTRUCTION [facility] HOME CARE INSTRUCTIONS Activity: 1. Activity may be increased as tolerated. Let comfort be your guide. 2. AVOID heavy lifting (over 10-15 pounds) or heavy straining with your abdomen for 3 month s after surgery. 3. Walking, climbing stairs, and using your arms and shoulders may be resumed as tolerated. 4. Sexual relations may be resumed as comfort allows. 5. Driving a vehicle may be resumed when you feel that you could respond safely in an gustavo gency situation, which generally is 2-3 weeks after surgery[address] Do not drive while taking pain medications. Medications: 1. Take pain medication for discomfort as prescribed. Tylenol may be used to replace pain pills, and generally has fewer side effects than prescription pain pills. 2. If your blood count was low after surgery, iron tablets will be prescribed at the time o f discharge. Take these as prescribed for one month. The dosage may be decreased or tempor arily held if you experience significant stomach upset or constipation - eventually you shou ld try to finish the entire prescription. Wound Care: 1. You may begin showering within a few days of surgery. Soap and water may run over inci sions, paper strips and drains - it is not necessary to cover up or protect these areas. Dr jairo schroeder tapes with a division chair on low, after your shower. 2. If drains remain in place, cover the skin exit sites daily with a thin layer of bacitrac in ointment and dry gauze. It may be most convenient to do this after showering. 3. Additional dry gauze may be placed as needed over any minor wounds, moist areas, or drai lizzette areas along incision lines. 4. If drains remain in place, continue to strip empty, and record the drainage from each dr perez separately 2-3 times daily. Please remember to bring the record of drainage with you fo r your post-op office visit. 5. Drains are generally all removed within 1-2 weeks of surgery. Call the office when any one drain has output less than 30mL per day for two days in a row so that you can come to e office to have it removed between scheduled visits 6. Avoid placing hot or cold on the reconstructed breast or abdomen areas. You may burn yo urself due to lack of normal sensation in these areas, even years after your surgery. Heati ng pads as well as sunning with black clothing may cause severe arce. Avoid these activiti es. Undergarments: 1. Bra wear is optional after surgery. You can usually begin to wear soft compressive supp ort, such as a camisole, 1-2 weeks after surgery, or you may go without - whichever is more comfortable. 2. Avoid under-wire bras for at least 1-2 months after surgery, as the wire may press again st the incision areas and interfere with healing. Any other type of bra is fine. 3. You will likely be most comfortable wearing sweats or pajama pants without underwear unt il your abdominal drains are removed. 4. After your abdominal drains are removed, you may wear compressive undergarments, such as Spanx, that can help reduce the edema or swelling in your abdomen and expedite your healing . What to Expect: 1. Some localized redness and soreness around the drain exit sites is normal and expected. Small amounts of yellow or bloody drainage from incisions are also normal. 2. The reconstructed breast and abdominal area are typically swollen, tight and numb after surgery, and remain so for weeks to months. Final assessment of size and shape of these are as is not possible until at least 3-6 months after surgery. Return of sensation and improve ment in the appearance of the scars can continue for several years after surgery. 3. Nipple reconstruction and any required revision or "touch-up" surgery on the reconstruct ed breast is considered 3-6 months after the initial surgery. It takes this long before acc urate judgments can be made regarding nipple position, breast size, etc. These later surger ies are typically much less involved than the original AUSTYN or ms-TRAM flap procedure. When to Call: 1. Do not hesitate to call the office for any questions regarding your surgery or follow-up . 2. Signs of infection that may be of concern include significantly increasing redness, swel ling, or pain around an incision or drain, especially if accompanied by a fever of 101. A s previously mentioned, localized redness and soreness around the drain skin exit sites is normal. 3. Signs of bleeding deep in the surgical sites that may be of concern include significantl y increasing bruising, swelling and pain. 4. It is very unlikely that any problems with blood flow to the new breast tissue will deve lop after discharge from the hospital. However, if a dramatic color change should be notice d in the new breast skin, such as blue or purple discoloration, please contact your surgeon immediately. DR. DALLAS OFFICE documented in this encounter Medications at Time of Discharge + + + +---------+ + + | Medication | Sig | Dispensed | Refills | Start | End Date | | | | | | Date | | + + + +---------+ + + | acetaminophen | Take 2 tablets by | 60 | 0 | 09/17/19 | | | (TYLENOL) 500 mg | mouth every 6 hours. | tablet | | 19 | | | tablet | | | | | | + + + +---------+ + + | amitriptyline | Take 10 mg by mouth | | 0 | | | | (ELAVIL) 10 mg | nightly as needed | | | | | | tablet | for Insomnia. | | | | | + + + +---------+ + + | amitriptyline | amitriptyline 25 mg | | 0 | 08/24/19 | | | (ELAVIL) 25 mg | tablet | | | 19 | | | tablet | | | | | | + + + +---------+ + + | amitriptyline | Take 1 tablet by | | 0 | 08/24/19 | | | (ELAVIL) 25 mg | mouth every morning. | | | 19 | | | tablet | | | | | | + + + +---------+ + + | bacitracin 500 | Apply to BOAZ drains | 1 | 0 | 09/17/19 | | | UNIT/GM ointment | daily with dressing | Applicati | | 19 | | | | changes | on | | | | + + + +---------+ + + | BIOTIN 5000 PO | Take 5,000 mcg by | | 0 | | | | | mouth Daily. | | | | | + + + +---------+ + + | docusate-senna | Take 2 tablets by | 60 | 0 | 09/17/19 | | | (SENOKOT-S) 50-8.6 | mouth 2 times daily. | tablet | | 19 | | | mg per tablet | | | | | | + + + +---------+ + + | fluconazole | Take 1 tablet by | | 0 | 08/10/19 | | | (DIFLUCAN) 150 mg | mouth Daily. For 1 | | | 19 | | | tablet | week | | | | | + + + +---------+ + + | ibuprofen | Take 1 tablet by | | 0 | 07/19/19 | | | (ADVIL,MOTRIN) 800 | mouth 3 times daily. | | | 19 | | | MG tablet | | | | | | + + + +---------+ + + | ondansetron | Take 1 tablet by | 10 | 0 | 09/16/19 | | | (ZOFRAN ODT) 4 mg | mouth every 6 hours | tablet | | 19 | | | disintegrating | as needed for Nausea | | | | | | tablet | or Vomiting. | | | | | + + + +---------+ + + | oxyCODONE | Take 1-3 tablets by | 60 | 0 | 09/16/19 | | | (ROXICODONE) 5 mg | mouth every 3 hours | tablet | | 19 | | | tablet | as needed for [...] 1 tablet by | | 0 | 07/19/19 | | | sulfamethoxazole-tri | mouth 2 times daily. | | | 19 | | | methoprim (BACTRIM | | | | | | | DS) 800-160 mg per | | | | | | | tablet | | | | | | + + + +---------+ + + | tamsulosin | Take 1 capsule by | | 0 | 06/22/19 | | | (FLOMAX) 0.4 mg CAPS | mouth Daily. | | | 19 | | + + + +---------+ + + | celecoxib | Take 1 capsule by | 10 | 0 | 09/17/19 | | | (CELEBREX) 200 mg | mouth 2 times daily | capsule | | 19 | 9 | | capsule | for 5 days. | | | | | + + + +---------+ + + | gabapentin | Take 2 capsules by | 30 | 0 | 09/17/19 | | | (NEURONTIN) 100 mg | mouth 3 times daily | capsule | | 19 | 9 | | capsule | for 5 days. | | | | | + + + +---------+ + + documented as of this encounter Progress Notes Gena Alatorre MD - 09/17/2018 11:00 AM PDTFormatting of this note might be different fr om the original. Progress Note Subjective: Interval History: Pt is POD # 3 s/p free abdominal tissue breast reconstruction. There we re no interval changes overnight. Her pain is well controlled on her current pain regiment. She denies nausea or vomiting. She is eager to go home but just had an episode of nausea. No BM yet. Passing flatus. at bedside. Objective: Vital signs in last 24 hours: Temp: [36.7 C (98 F)-37 C (98.6 F)] 37 C (98.6 F) Pulse: [98-104] 98 Resp: [16-18] 18 BP: (101-131)/(65-79) 117/76 Good UOP over the last 24 hours Date 09/16/18 07 - 09/17/18 0709/17/18 07 - 09/18/18 07 Shift 6806-6175 0086-5069 24 Hour Total 0567-1229 2870-8300 24 Hour Total INTAKE P.O. 1960 1960 P.O. 360 360 Water PO (mL) 1600 1600 Shift Total(mL/kg) 1960(27.7) 1960(27.7) OUTPUT Urine(mL/kg/hr) 575(0.7) 600(0.7) 1175(0.7) Other 62.5 77.5 140 Shift Total(mL/kg) 637.5(9) 677.5(9.6) 1315(18.6) NET 1322.5 -677.5 645 Weight (kg) 70.8 70.8 70.8 70.8 70.8 70.8 JPs are serosanguinous with modest output No results found for this or any previous visit (from the past 24 hour(s)). Breast: nipples pink and healthy, warm, well perfused without unusual swelling or evidence of hematoma. Incisions c/d/i Abdomen: The donor area is c/d/i, no erythema or evidence of hematoma Assessment/Plan: POD# 3 S/p Free abdominal flap for breast reconstruction. Patient is doing well. Will continue to advance per standard post-operative routine. Cont inue current care. Continue Flap monitoring Q 2h OOB to chair and ambulate at least once a day Continue IS Q 1h Lovenox for DVT prophylaxis Home today if nausea resolves. F/u as scheduled with Dr. Faraz Alatorre 09/17/2018 11:01 Olivia Olson M D - 09/16/2018 7:11 AM PDT Progress Note Subjective: Interval History: Pt is POD # 2 s/p free abdominal tissue breast reconstruction. There we re no interval changes overnight. Her pain is well controlled on her current pain regimen. She denies nausea or vomiting. Objective: Vital signs in last 24 hours: Temp: [36.6 C (97.9 F)-36.7 C (98 F)] 36.7 C (98 F) Pulse: [83-91] 83 Resp: [15-18] 15 BP: (87-114)/(49-72) 114/65 Good UOP over the last 24 hours Date 09/15/18 0701 - 09/16/18 0700 09/16/18 07 - 09/17/18 0700 Shift 9153-9928 4503-2204 24 Hour Total 7384-1016 1384-3832 24 Hour Total INTAKE P.O. 1200 1200 Water PO (mL) 1200 1200 I.V.(mL/kg/hr) 463(0.5) 463(0.3) I.V. 463 463 Shift Total(mL/kg) 463(6.5) 1200(17) 1663(23.5) OUTPUT Urine(mL/kg/hr) 2375(2.8) 2375(1.4) Other 55 123.5 178.5 Shift Total(mL/kg) 55(0.8) 2498.5(35.3) 2553.5(36.1) NET 408 -1298.5 -890.5 Weight (kg) 70.8 70.8 70.8 70.8 70.8 70.8 JPs are serosanguinous with modest output No results found for this or any previous visit (from the past 24 hour(s)). Breast: mastectomy flaps are pink and healthy, warm, well perfused without unusual swelling or evidence of hematoma. Diminishing ecchymosis. Increasing bilateral edema. Incisions c/d /i Abdomen: The donor area is c/d/i, no erythema or evidence of hematoma. Umbilicus healthy appearing. Assessment/Plan: POD# 1 s/p abdominal free flap for breast reconstruction. Patient is doing well. Will continue to advance per standard post-operative routine. Cont inue current care. Continue flap monitoring Q 1h until vioptix removed OOB to chair and ambulate Catheter removed. Continue IS Q 1h Lovenox for DVT prophylaxis Anticipate discharge tomorrow. Vero Stevenson MSW - 09/15/2018 8:06 AM PDTNo Social Work D/C needs identified at this time. Olivia Olson MD - 09/15/2018 7:04 AM PDT Progress Note Subjective: Interval History: Pt is POD # 1 s/p free abdominal tissue breast reconstruction. There we re no interval changes overnight. Her pain is well controlled on her current pain regimen. She denies nausea or vomiting. Objective: Vital signs in last 24 hours: Temp: [36.7 C (98 F)-36.8 C (98.3 F)] 36.7 C (98.1 F) Pulse: [95-118] 95 Resp: [13-21] 16 BP: (100-135)/(54-81) 103/54 Good UOP over the last 24 hours Date 09/14/18 0701 - 09/15/18 0700 09/15/18 07 - 09/16/18 0700 Shift 1347-5012 6085-3967 24 Hour Total 3765-9828 8447-3279 24 Hour Total INTAKE P.O. 960 960 P.O. 360 360 Water PO (mL) 600 600 I.V.(mL/kg/hr) 3100(3.7) 1169(1.4) 4269(2.5) I.V. 1169 1169 Volume (mL) (balanced electrolytes in water (PLASMALYTE-148/NORMOSOL-R) infusion) 3100 3 100 IV Piggyback 500 500 Volume (mL) (albumin 5% IVPB) 500 500 Shift Total(mL/kg) 3600(50.9) 2129(30.1) 5729(81) OUTPUT Urine(mL/kg/hr) 1450(1.7) 3550(4.2) 5000(2.9) Emesis/NG output 25 25 Other 133 133 Blood 50 50 Shift Total(mL/kg) 1525(21.6) 3683(52) 5208(73.6) NET 2074 -1553 521 Weight (kg) 70.8 70.8 70.8 70.8 70.8 70.8 JPs are serosanguinous with modest output Recent Results (from the past 24 hour(s)) Hemoglobin and Hematocrit Result Value Ref Range Hemoglobin 11.4 11.3 - 15.5 g/dL Hct 33.7 (L) 34.0 - 46.0 % Breast: Mastectomy flaps pink and healthy, warm, well perfused without unusual swelling or evidence of hematoma. Incisions c/d/i. AUSTYN flaps are buried under mastectomy flaps Abdomen: The donor area is c/d/i, no erythema or evidence of hematoma. Dressing in place. Assessment/Plan: POD# 1 s/p abdominal free flap for breast reconstruction. Patient is doing well. Will continue to advance per standard post-operative routine. Cont inue current care. Continue breast monitoring Q 1h looking for breast swelling, ecchymosis or changes in drain output. OOB to chair and ambulate at least once a day Continue IS Q 1h Lovenox for DVT prophylaxis documented in this encounter Plan of Treatment Not on filedocumented as of this encounter Procedures + +--------+ + + + | Procedure Name | Priori | Date/Time | Associated Diagnosis | Comments | | | ty | | | | + +--------+ + + + | HEMOGLOBIN AND | Routin | 09/15/2018 | | Results for this | | HEMATOCRIT | e | 2:27 AM | | procedure are in the | | | | PDT | | results section. | + +--------+ + + + | RECONSTRUCTION | | 09/14/2018 | Malignant neoplasm | | | BREAST W/ AUSTYN FLAP | | 7:24 AM | of upper-inner | | | | | PDT | quadrant of left | | | | | | female breast, | | | | | | unspecified estrogen | | | | | | receptor status | | | | | | (HCC) | | + +--------+ + + + | POCT TEST, | STAT | 09/14/2018 | | Results for this | | URINE, QUAL | | 6:21 AM | | procedure are in the | | | | PDT | | results section. | + +--------+ + + + | POC GLUCOSE | Routin | 09/14/2018 | | Results for this | | | e | 6:13 AM | | procedure are in the | | | | PDT | | results section. | + +--------+ + + + | LABS - EXTERNAL SCAN | | 08/03/2018 | | Results for this | | | | 12:00 AM | | procedure are in the | | | | PDT | | results section. | + +--------+ + + + documented in this encounter Results Hemoglobin and Hematocrit (09/15/2018 2:27 AM PDT) + + + + + + | Component | Value | Ref Range | Performed | Pathologist | | | | | At | Signature | + + + + + + | Hemoglobin | 11.4 | 11.3 - 15.5 | [facility] | | | | | g/dL | [facility] | | | | | | [facility] | | | | | [facility] | | | | | | LAB[facility] | | | | | | [facility] | | + + + + + + | Hct | 33.7 (L)Comment: | 34.0 - 46.0 % | [facility] | | | | Performed by [facility] [address] | | [facility] | | | | [address] [place] | | HEART | | | | [address] | | MEDICAL | | | | | | CENTER | | | | | | LABORATORY | | | | | | [facility] | | + + + + + + + + | Specimen | + + | Blood specimen | | (specimen) | + + + + + + + | Performing | Address | City/State/Zipcode | Phone Number | | Organization | | | | + + + + + | [facility] | [address] | [place] [address] | | | [facility] | | | | | LABORAT[facility] | | | | + + + + + POCT Test, Urine, QUAL (09/14/2018 6:21 AM PDT) + + + + + + | Component | Value | Ref Range | Performed | Pathologist | | | | | At | Signature | + + + + + + | | Negative | Negative | | | | Test, | | | | | | Urine, POC | | | | | + + + + + + | Internal QC | Acceptable | Acceptable | | | + + + + + + | Specific | | 1.010, 1.015, | | | | [place], | | 1.020, 1.025 | | | | POC | | | | | + + + + + + | Lot Number | | | | | + + + + + + | Expiration | | | | | | Date | | | | | + + + + + + + + | Specimen | + + | Urine | + + POC Glucose (09/14/2018 6:13 AM PDT) + + + + --+ + | Component | Value | Ref Range | Performed | Pathologist | | | | | At | Signature | + + + + --+ + | Glucose, | 96Comment: Performed by | 65 - 99 mg/dL | [facility] | | | POC | [facility] [address], | | [facility] | | | | [place] [address] | | HEART | | | |Performed by [facility] [address], [place] [address] | | MEDICAL | | | | | | CENTER | | | | | | LABORATORY | | | | | | [facility] | | + + + + --+ + + + | Specimen | + + | Blood specimen | | (specimen) | + + + + + + + | Performing | Address | City/State/Zipcode | Phone Number | | Organization | | | | + + + + + | [facility] | [address] | [place] [address] | | | [facility] | | | | | [facility]AT[facility] [place] | | | | + + + + + LABS - EXTERNAL SCAN (08/03/2018 12:00 AM PDT) + + + | Narrative | Performed At | + + + | Ordered by an | | | unspecified provider. | | + + + documented in this encounter Visit Diagnoses Not on filedocumented in this encounter Administered Medications + +--------+ + +------+------+ | Medication Order | MAR | Action | Dose | Rate | Site | | | Action | Date | | | | + +--------+ + +------+------+ | acetaminophen (TYLENOL) tablet | Given | 09/18/19 | 1,000 mg | | | | 1,000 mg 1,000 mg, Oral, EVERY 6 | | 19 1:43 | | | | | HOURS (4 times per day), First | | PM PDT | | | | | dose on Wed09/14/18 at 2030, | | | | | | | Post-op/Phase II | | | | | | + +--------+ + +------+------+ +-------+ + +---+---+ | Given | 09/18/19 | 1,000 mg | | | | | 19 5:35 | | | | | | AM PDT | | | | +-------+ + +---+---+ | Given | 09/17/19 | 1,000 mg | | | | | 19 6:51 | | | | | | PM PDT | | | | +-------+ + +---+---+ +---+---+ | | | +---+---+ + +-------+ +--------+---+---+ | acetaminophen (TYLENOL) tablet | Given | 09/15/19 | 650 mg | | | | 650 mg 650 mg, Oral, ONCE, Wed | | 19 6:04 | | | | | 09/14/18 at 0615, For 1 dose, | | AM PDT | | | | | Pre-op | | | | | | + +-------+ +--------+---+---+ +---+---+ | | | +---+---+ + +-------+ + +---+---+ | bacitracin topical ointment 1 | Given | 09/18/19 | 1 | | | | Application 1 Application (1 g), | | 19 9:04 | Applicat | | | | Topical, DAILY, First dose on | | AM PDT | ion | | | | 09/14/18 at 2030, Apply to BOAZ | | | | | | | drains daily with dressing | | | | | | | changes, Post-op/Phase II | | | | | | + +-------+ + +---+---+ +-------+ + +---+---+ | Given | 09/17/19 | 1 | | | | | 19 8:34 | Applicat | | | | | AM PDT | ion | | | +-------+ + +---+---+ | Given | 09/16/19 | 1 | | | | | 19 8:16 | Applicat | | | | | AM PDT | ion | | | +-------+ + +---+---+ +---+---+ | | | +---+---+ + +---------+ [...] +---+---+---+ +---+---+ | | | +---+---+ + +---------+ +-----+-------+---+ | ceFAZolin (ANCEF, KEFZOL) 1 g | New Bag | 09/16/19 | 1 g | 100 | | | in sodium chloride 0.9% 50 mL | | 19 5:23 | | mL/hr | | | IVPB 1 g, Intravenous, | | AM PDT | | | | | Administer over 30 Minutes, EVERY | | | | | | | 8 HOURS (3 times per day), First | | | | | | | dose on Wed09/14/18 at 2030, For | | | | | | | 2 doses, Administer 8 hours after | | | | | | | pre-operative dose. Activate | | | | | | | system and mix before use., | | | | | | | Post-op/Phase II, Indications: | | | | | | | Surgical Prophylaxis | | | | | | + +---------+ +-----+-------+---+ +---------+ +-----+-------+---+ | New Bag | 09/15/19 | 1 g | 100 | | | | 19 9:26 | | mL/hr | | | | PM PDT | | | | +---------+ +-----+-------+---+ +---+---+ | | | +---+---+ + +-------+ +--------+---+---+ | celecoxib (CELEBREX) capsule | Given | 09/18/19 | 200 mg | | | | 200 mg 200 mg, Oral, 2 TIMES | | 19 9:04 | | | | | DAILY, First dose on Wed09/14/18 | | AM PDT | | | | | at 2100, Begin after toradol | | | | | | | infusion complete, Post-op/Phase | | | | | | | II | | | | | | + +-------+ +--------+---+---+ +-------+ +--------+---+---+ | Given | 09/17/19 | 200 mg | | | | | 19 8:34 | | | | | | PM PDT | | | | +-------+ +--------+---+---+ | Given | 09/17/19 | 200 mg | | | | | 19 8:29 | | | | | | AM PDT | | | | +-------+ +--------+---+---+ +---+---+ | | | +---+---+ + +---------+ +---+-------+---+ | dextrose 5% and sodium chloride | New Bag | 09/16/19 | | 125 | | | 0.45% with KCl 20 mEq/L (D5 05/11 | | 19 3:33 | | mL/hr | | | NS + KCL 20) infusion at 125 | | AM PDT | | | | | mL/hr, Intravenous, CONTINUOUS, | | | | | | | Starting 09/14/18 at 2030, | | | | | | | Post-op/Phase II | | | | | | + +---------+ +---+-------+---+ +---------+ +---+-------+---+ | New Bag | 09/15/19 | | 125 | | | | 19 8:11 | | mL/hr | | | | PM PDT | | | | +---------+ +---+-------+---+ +---+---+ | | | +---+---+ + +-------+ +---------+---+---+ | jona-david (SENOKOT-S) | Given | 09/18/19 | 2 | | | | 50-8.6 mg per tablet 2 tablet 2 | | 19 9:04 | tablets | | | | tablet, Oral, 2 TIMES DAILY, | | AM PDT | | | | | First dose on Wed09/14/18 at 2100, | | | | | | | Post-op/Phase II | | | | | | + +-------+ +---------+---+---+ +-------+ +---------+---+---+ | Given | 09/17/19 | 2 | | | | | 19 8:34 | tablets | | | | | PM PDT | | | | +-------+ +---------+---+---+ | Given | 09/17/19 | 2 | | | | | 19 8:29 | tablets | | | | | AM PDT | | | | +-------+ +---------+---+---+ +---+---+ | | | +---+---+ + +-------+ +-------+---+ + | enoxaparin (LOVENOX) 40 mg/0.4 | Given | 09/15/19 | 40 mg | | Leg-Righ | | mL injection 40 mg 40 mg, | | 19 7:13 | | | t Upper | | Subcutaneous, ONCE, 09/14/18 at | | AM PDT | | | | | 0615, For 1 dose, Administer in | | | | | | | thigh in pre-op, Pre-op | | | | | | + +-------+ +-------+---+ + +---+---+ | | | +---+---+ + +-------+ +-------+---+ + | enoxaparin (LOVENOX) 40 mg/0.4 | Given | 09/18/19 | 40 mg | | Arm-Righ | | mL injection 40 mg 40 mg, | | 19 9:02 | | | t Upper | | Subcutaneous, EVERY 24 HOURS | | AM PDT | | | | | (Daily), First dose on [place] 09/15/18 | | | | | | | at 0900, Give first dose within | | | | | | | 20 hours of surgery end time. | | | | | | | Nursing/Pharmacy to retime first | | | | | | | dose to 1900 for surgeries ending | | | | | | | between 2200 and 0900., | | | | | | | Post-op/Phase II | | | | | | + +-------+ +-------+---+ + +-------+ +-------+---+ + | Given | 09/17/19 | 40 mg | | Arm-Righ | | | 19 8:29 | | | t Upper | | | AM PDT | | | | +-------+ +-------+---+ + | Given | 09/16/19 | 40 mg | | Abdomen- | | | 19 8:16 | | | LLQ | | | AM PDT | | | | +-------+ +-------+---+ + +---+---+ | | | +---+---+ + +-------+ +--------+---+---+ | fentaNYL (PF) injection 25-50 | Given | 09/15/19 | 50 mcg | | | | mcg 25-50 mcg, Intravenous, | | 19 5:48 | | | | | EVERY 5 MIN PRN, Pain, Starting | | PM PDT | | | | | 09/14/18 at 1631, Maximum total | | | | | | | dose 250 mcg. PACU IV Narcotic | | | | | | | Priority: Only use fentanyl for | | | | | | | immediate post-op pain (one dose) | | | | | | | or breakthrough pain when any | | | | | | | other IV narcotics ordered have | | | | | | | been ineffective (if ordered). | | | | | | | If both morphine and | | | | | | | hydromorphone are ordered, use | | | | | | | morphine first, and use | | | | | | | hydromorphone if morphine | | | | | | | ineffective., Recovery/Phase I | | | | | | + +-------+ +--------+---+---+ +-------+ +--------+---+---+ | Given | 09/15/19 | 50 mcg | | | | | 19 5:28 | | | | | | PM PDT | | | | +-------+ +--------+---+---+ +---+---+ | | | +---+---+ + +-------+ +--------+---+---+ | gabapentin (NEURONTIN) capsule | Given | 09/18/19 | 200 mg | | | | 200 mg 200 mg, Oral, 3 TIMES | | 19 1:43 | | | | | DAILY, First dose on [facility] 09/15/18 | | PM PDT | | | | | at 0900, For 3 days | | | | | | + +-------+ +--------+---+---+ +-------+ +--------+---+---+ | Given | 09/18/19 | 200 mg | | | | | 19 9:04 | | | | | | AM PDT | | | | +-------+ +--------+---+---+ | Given | 09/17/19 | 200 mg | | | | | 19 8:34 | | | | | | PM PDT | | | | +-------+ +--------+---+---+ +---+---+ | | | +---+---+ + +-------+ +--------+---+---+ | gabapentin (NEURONTIN) capsule | Given | 09/15/19 | 600 mg | | | | 600 mg 600 mg, Oral, ONCE, Wed | | 19 6:05 | | | | | 09/14/18 at 0615, For 1 dose, | | AM PDT | | | | | Pre-op | | | | | | + +-------+ +--------+---+---+ +---+---+ | | | +---+---+ + +-------+ +--------+---+---+ | HYDROmorphone (DILAUDID) | Given | 09/15/19 | 0.5 mg | | | | injection 0.2-0.5 mg 0.2-0.5 mg, | | 19 7:14 | | | | | Intravenous, EVERY 5 MIN PRN, | | PM PDT | | | | | Pain, Starting 09/14/18 at | | | | | | | 1631, Maximum total dose 4 mg. | | | | | | | PACU IV Narcotic Priority: Only | | | | | | | use fentanyl for immediate | | | | | | | post-op pain (one dose) or | | | | | | | breakthrough pain when any other | | | | | | | IV narcotics ordered have been | | | | | | | ineffective (if ordered). If | | | | | | | both morphine and hydromorphone | | | | | | | are ordered, use morphine first, | | | | | | | and use hydromorphone if morphine | | | | | | | ineffective., Recovery/Phase I | | | | | | + +-------+ +--------+---+---+ +-------+ +--------+---+---+ | Given | 09/15/19 | 0.5 mg | | | | | 19 6:25 | | | | | | PM PDT | | | | +-------+ +--------+---+---+ | Given | 09/15/19 | 0.5 mg | | | | | 19 5:48 | | | | | | PM PDT | | | | +-------+ +--------+---+---+ +---+---+ | | | +---+---+ + +-------+ +--------+---+---+ | magnesium hydroxide (MILK OF | Given | 09/17/19 | 30 mLs | | | | MAGNESIA) 400 mg/5 mL suspension | | 19 8:29 | | | | | 30 mL 30 mL, Oral, NIGHTLY PRN, | | AM PDT | | | | | Constipation, Starting Fri | | | | | | | 09/16/18 at 0600, Start if no BM | | | | | | | on day 2. Hold for loose | | | | | | | stools., Post-op/Phase II | | | | | | + +-------+ +--------+---+---+ + +---+ | | | + +---+ | metoclopramide (REGLAN) 5 mg/mL | | | injection 10 mg 10 mg, | | | Intravenous, EVERY 4 HOURS PRN, | | | Nausea, Vomiting, Starting Wed | | | 09/14/18 at 2000, Use if | | | ondansetron and prochlorperazine | | | ineffective after 30min or not | | | ordered. Use PO option unless | | | NPO status or unable to tolerate. | | | Protect from light., | | | Post-op/Phase II | | + +---+ | | | + +---+ | metoclopramide (REGLAN) tablet | | | 10 mg 10 mg, Oral, EVERY 4 HOURS | | | PRN, Nausea, Vomiting, Starting | | | 09/14/18 at 2000, Use if | | | ondansetron and prochlorperazine | | | ineffective after 30min or not | | | ordered, Post-op/Phase II | | + +---+ | | | + +---+ + +-------+ +------+---+---+ | ondansetron (ZOFRAN ODT) | Given | 09/18/19 | 4 mg | | | | disintegrating tablet 4 mg 4 mg, | | 19 11:37 | | | | | Oral, EVERY 6 HOURS PRN, Nausea, | | AM PDT | | | | | Vomiting, Starting 09/14/18 at | | | | | | | 2000, First line agent, | | | | | | | Post-op/Phase II | | | | | | + +-------+ +------+---+---+ + +---+ | | | + +---+ | ondansetron (ZOFRAN) injection | | | 4 mg 4 mg, Intravenous, EVERY 6 | | | HOURS PRN, Nausea, Vomiting, | | | Starting 09/14/18 at 2000, | | | First line agent. Use PO option | | | unless NPO status or unable to | | | tolerate., Post-op/Phase II | | + +---+ | | | + +---+ + +-------+ +-------+---+---+ | oxyCODONE (ROXICODONE) tablet | Given | 09/18/19 | 15 mg | | | | 5-15 mg 5-15 mg, Oral, EVERY 3 | | 19 1:44 | | | | | HOURS PRN, Pain, Starting Wed | | PM PDT | | | | | 09/14/18 at 2000, If ineffective or | | | | | | | not tolerated, contact | | | | | | | prescriber, Post-op/Phase II | | | | | | + +-------+ +-------+---+---+ +-------+ +-------+---+---+ | Given | 09/18/19 | 15 mg | | | | | 19 9:04 | | | | | | AM PDT | | | | +-------+ +-------+---+---+ | Given | 09/18/19 | 15 mg | | | | | 19 5:36 | | | | | | AM PDT | | | | +-------+ +-------+---+---+ +---+---+ | | | +---+---+ documented in this encounter
--- OUTSIDE RECORDS SUMMARY | ~2019-03-20 | XMS | Encounter Summary ---
Demographics + + + | Address | [address] | | | [place] [address] | + + + | Home Phone | | + + + | Preferred Language | Unknown | + + + | Marital Status | | + + + | Samaritan Affiliation | Unknown | + + + | Race | Unknown | + + + | Ethnic Group | Unknown | + + + Author + + + | Author | [facility] | | | and [place] | + + + | Organization | [facility] | | | and [place] | + + + | Address | Unknown | + + + | Phone | Unavailable | + + + Support + + + + + | Name | Relationship | Address | Phone | + + + + + | Martin Wetzel | ECON | [address] | | | | | [place] | | | | | [address] | | + + + + + Care Team Providers + +------+ + | Care Back Tender Cylinder Name | Role | Phone | + +------+ + | Pcp, Prov Inactive | PCP | | + +------+ + Encounter Details +--------+ + + + + | Date | Type | Department | Care Team | Description | +--------+ + + + + | 08/17/ | Hospital | [facility] | Conversion | Pelvic and perineal | | 2018 | Encounter | [facility] | Transaction, | pain | | | | ULTRASOUND [address] | Provider Unknown | | | | | [address] | [phone] | | | | | [place], [place] | | | | | | [address] | DavidLing ramirez, | | | | | [phone] | SECURITIES RESEARCH ANALYST [address] | | | | | | [address] | | | | | | [place] | | | | | | [address] | | | | | | [phone] | | | | | | | [...] + +--------+ + + + | US NON-OB | Routin | 08/17/2018 | | Results for this | | TRANSVAGINAL | e | 4:18 PM | | procedure are in the | | | | PDT | | results section. | + +--------+ + + + documented in this encounter Results US Non-Ob Transvaginal (08/17/2018 4:18 PM PDT) + + | Specimen | + + | | + + + + + | Impressions | Performed At | + + + | 1. Small 9 mm intramural fibroid. 2. Tiny amount of free fluid | | | adjacent to the right ovary. 3. Mildly complex cyst in the right | | | ovary measuring 1.7 cm which may represent hemorrhagic or possible | | | collapsed cyst. Signed by: Radha Barragan Chet Sign Date/Time: | | | 08/18/2018 2:11 PM | | + + + + + + | Narrative | Performed At | + + + | ULTRASOUND PELVIS, TRANSVAGINAL CLINICAL INFORMATION: Pelvic pain | | | with recent diagnosis of breast cancer and mets. Patient's LMP was in | | | Jun. COMPARISON: None PROCEDURE: Evaluation and measurement of | | | the uterus, endometrium and ovaries, if present, and evaluation of | | | the adnexa. FINDINGS: Uterus: 6.7 x 3.7 x 4.3 cm. Small hypoechoic | | | area within the posterior body of the uterus measuring 9 mm to | | | likely resent a small intra oral fibroid. Endometrium is | | | homogeneous. Endometrium: 7 mm. Right ovary: 3.1 x 2.7 x 2.1 cm. | | | Mildly complex cyst within the right ovary measuring 1.7 cm. Trace | | | amount of free fluid adjacent to the right ovary. Left ovary: 2.6 x | | | 1.8 x 2.3 cm. Normal physiologic appearance. | | + + + + + | Procedure Note | + + | Heri Conn Conversion - 12/20/2018 10:09 PM PDT ULTRASOUND PELVIS, TRANSVAGINAL | | CLINICAL INFORMATION: | | Pelvic pain with recent diagnosis of breast cancer and mets. Patient's | | LMP was in Jun. | | COMPARISON: | | None | | PROCEDURE: | | Evaluation and measurement of the uterus, endometrium and ovaries, if | | present, and evaluation of the adnexa. | | FINDINGS: | | Uterus: 6.7 x 3.7 x 4.3 cm. Small hypoechoic area within the posterior | | body of the uterus measuring 9 mm to likely resent a small intra oral | | fibroid. Endometrium is homogeneous. Endometrium: 7 mm. | | Right ovary: 3.1 x 2.7 x 2.1 cm. Mildly complex cyst within the right | | ovary measuring 1.7 cm. Trace amount of free fluid adjacent to the | | right ovary. | | Left ovary: 2.6 x 1.8 x 2.3 cm. Normal physiologic appearance. | | IMPRESSION: | | 1. Small 9 mm intramural fibroid. | | 2. Tiny amount of free fluid adjacent to the right ovary. | | 3. Mildly complex cyst in the right ovary measuring 1.7 cm which may | | represent hemorrhagic or possible collapsed cyst. | | Signed by: Radha Barragan Chet | | Sign Date/Time: 08/18/2018 2:11 PM | + + documented in this encounter Visit Diagnoses + + | Diagnosis | + + | Pelvic and perineal pain | + + documented in this encounter"
--- OUTSIDE RECORDS SUMMARY | ~2019-03-20 | XMS | Encounter Summary ---
Demographics + + + | Address | [address] | | | [place] [address] | + + + | Home Phone | | + + + | Preferred Language | Unknown | + + + | Marital Status | | + + + | Mormonism Affiliation | Unknown | + + + | Race | Unknown | + + + | Ethnic Group | Unknown | + + + Author + + + | Author | [facility] | | | and [place] | + + + | Organization | [facility] | | | and [place] | + + + | Address | Unknown | + + + | Phone | Unavailable | + + + Support + + + + + | Name | Relationship | Address | Phone | + + + + + | Martin Wetzel | ECON | [address] | | | | | [place] | | | | | [address] | | + + + + + Care Team Providers + +------+ + | Care Scientific Software Engineer Name | Role | Phone | + [...] | | | quadrant of | | [phone] Phone: | | | | | left female | | [phone] | | | | | breast, | | Fax: | | | | | unspecified | | [phone] | | | | | estrogen | [...] | | | | | | | IN BREAST | | | | | | | RECONSTRUC W | | | | | | | FREE FLAP | | | | | | | IN IMPLANT | | | | | | [...] +--------+--------+ + + + + Encounter Details +--------+---------+ + + + | Date | Type | Department | Care Team | Description | +--------+---------+ + + + | 09/14/ | Surgery | [facility] | Olivia [place], | RECONSTRUCTION | | 2019 | | [facility] | [address] | BREAST W AUSTYN FLAP | | | | OP [address] | [place] [address] | | | | | [place], [place] | [phone] | | | | | [address] | | | | | | [phone] | | | +--------+---------+ + + + Social History + +-------+ [...] interim if questions or concer ns arise. andry, Becky Lopez MD - 09/17/2018 3:18 PM PDTFormatting of this note might be different from the origi nal. Physician Discharge Summary Patient ID: Pat Wetzel [id number] y.o. 1980 Admit date: 09/14/2018 Discharge [...] scheduled. Signed: Gena Alatorre MD 09/17/2018 15:18 ypert, Bonnie Jiang RN - 09/17/2018 2:50 PM PDTDC home to [place]. Ride provided by . Nausea has [...] - 09/14/2018DIEP & MS-TRAM FLAP BREAST RECONSTRUCTION [facility] INSTRUCTIONS Activity: 1. Activity [...] areas. Dr jairo schroeder tapes with a hairspring inspector on low, after your shower. 2. If [...] row so that you can come to [facility] office to have it removed between scheduled [...] contact your surgeon immediately. DR. DALLAS OFFICE [phone] documented in this encounter Medications at Time [...] documented as of this encounter Progress Notes eGna Alatorre MD - 09/17/2018 11:00 AM PDTFormatting [...] over the last 24 hours Date 09/16/18 0701 - 09/17/18 0700 09/17/18 07 - 09/18/18 0700 Shift 3673-3578 6832-1392 24 Hour Total 8165-5015 5721-9519 24 Hour Total INTAKE P.O. 1960 1960 [...] Date 09/15/18 0701 - 09/16/18 0700 09/16/18 0701 - 09/17/18 0700 Shift 1715-6808 1410-2770 24 Hour Total 7902-4687 4368-0383 24 Hour Total INTAKE P.O. 1200 1200 [...] 0700 09/15/18 07 - 09/16/18 0700 Shift 8045-4669 1019-5676 24 Hour Total 5013-7113 1942-5063 24 Hour Total INTAKE [address] 960 960 [...] [facility] | | | | Performed by [facility] [address] | | [facility] | | | | [address] [place] | | HEART | | | | [address] | | MEDICAL | | | | [...] + + | [facility] | [address] | [place] [address] | | | [facility] | | | | | LABORATORY CERNER [...] | 1.010, 1.015, | | | | [place], | | 1.020, 1.025 | | | [...] | [facility] | | | POC | [facility] [address], | | [facility]CR[facility] | | | | [place] [address] | | HEART | | | |Performed by [facility] [address], [place] [address] | | MEDICAL | | | | [...] + + | [facility] | [address] | [place] [address] | | | [facility] | | | | | LABORATORY FERNANDO [...] + | Diagnosis | + + | Malignant neoplasm of upper-inner quadrant of left female breast, unspecified estrogen | | receptor status (HCC) | + + documented in this encounter [...] +---+---+ | | | +---+---+ + +-------+ +--------+---+ + | bupivacaine (liposomal) | Given | 09/15/19 | 20 mLs | | Surgical | | (EXPAREL) 1.3% injection 20 mL | | 19 2:20 | | | Site | | 20 mL, Infiltration, ONCE, Wed | | PM PDT | | | | | 09/14/18 at 0615, For 1 dose, Send | | | | | | | to OR for administration, Pre-op | | | | | | + +-------+ +--------+---+ + +---+---+ | | | +---+---+ + [...] | | +---+---+ + +-------+ +---------+---+---+ | catrachote-david (SENOKOT-S) | Given | 09/18/19 | 2 [...] | | | DAILY, First dose on [facility] 09/15/18 | | PM PDT | | [...] +---+---+ | | | +---+---+ + +-------+ +---------+---+ + | heparin 1,000 units/mL | Given | 09/15/19 | 10,000 | | Other | | injection PRN, Starting Wed | | 19 8:41 | Units | | (Comment | | 09/14/18 at 0841, Intra-op | | AM PDT | | | ) | + +-------+ +---------+---+ + +---+---+ | | | +---+---+ + [...] | +---+---+ + +-------+ +-------+---+ + | methylene blue 1% (10 mg/mL) | Given | 09/15/19 | 50 mg | | Surgical | | injection PRN, Starting Wed | | 19 8:42 | | | Site | | 09/14/18 at 0842, Intra-op | | AM PDT | | | | + +-------+ +-------+---+ + + +---+ | | | + +---+ [...] PRN, Nausea, Vomiting, Starting | | | Wed09/14/18 at 2000, Use if | | | [...] | | | | | Vomiting, Starting Wed09/14/18 at | | | | | | [...] +---+---+ | | | +---+---+ + +-------+ +--------+---+ + | papaverine injection PRN, | Given | 09/15/19 | 120 mg | | Surgical | | Starting 09/14/18 at 0842, | | 19 8:42 | | | Site | | Intra-op | | AM PDT | | | | + +-------+ +--------+---+ + +---+---+ | | | +---+---+ documented in this encounter
--- OUTSIDE RECORDS SUMMARY | ~2019-03-20 | XMS | Encounter Summary ---
Demographics + + + | Address | [address] | | | [place] [address] | + + + | Home Phone | | + + + | Preferred Language | Unknown | + + + | Marital Status | | + + + | Restoration Affiliation | Unknown | + + + | Race | Unknown | + + + | Ethnic Group | Unknown | + + + Author + + + | Author | [facility] | | | and [place] | + + + | Organization | [facility] | | | and [place] | + + + | Address | Unknown | + + + | Phone | Unavailable | + + + Support + + + + + | Name | Relationship | Address | Phone | + + + + + | Martin Wetzel | ECON | [address] | | | | | [place] | | | | | [address] | | + + + + + Care Team Providers + +------+ + | Care Offset Plate Maker Name | Role | Phone | + +------+ + | Pcp, Prov Inactive | PCP | | + +------+ + Encounter Details +--------+ + + + + | Date | Type | Department | Care Team | Description | +--------+ + + + + | 07/05/ | Hospital | [facility] | Conversion | Unspecified lump in | | 2019 | Encounter | [facility]ENTER [facility] | Transaction, | the left breast, | | | | MAMMOGRAPHY [address] | Provider Unknown | lower outer quadrant | | | | [address] | [phone] | | | | | [place], [place] | | | | | | [address] | DavidLing ramirez, | | | | | [phone] | NURSING PROGRAM MANAGER [address] | | | | | | [address] | | | | | | [place] | | | | | | [address] | | | | | | [phone] | | | | | | | [...] 1-2 tablets by | | 0 | // | | | oxyCODONE-acetaminop | mouth EVERY [...] | + +--------+ + + + | [facility] | Routin | 07/05/2018 | | Results for this | | DIAGNOSTIC BILATERAL | e | 2:02 PM | | procedure are in the | | | | PST | | results section. | + +--------+ + + + documented in this encounter Results [facility] Diagnostic Bilateral (07/05/2018 2:02 PM PST) + + | Specimen | [...] be sent to the patient. Signed by: Antonia | | | German Deleon Date/Time: 07/05/2018 3:33 [...] Rad Conversion - 12/20/2018 10:09 PM PDT [facility] DIAG[facility]STIC MAMMOGRAM | | BILATERAL; ULTRASOUND BREAST LIMITEDUNILATERAL LEFTCLINICAL INFORMATION:Left breast | | lump, right breast screening, [facility]. [facility] | [...]
--- OUTSIDE RECORDS SUMMARY | ~2019-03-20 | XMS | Encounter Summary ---
Demographics + + + | Address | [address] | | | [place] [address] | + + + | Home Phone | | + + + | Preferred Language | Unknown | + + + | Marital Status | | + + + | Alevism Affiliation | Unknown | + + + | Race | Unknown | + + + | Ethnic Group | Unknown | + + + Author + + + | Author | [facility] | | | and [place] | + + + | Organization | [facility] | | | and [place] | + + + | Address | Unknown | + + + | Phone | Unavailable | + + + Support + + + + + | Name | Relationship | Address | Phone | + + + + + | Martin Wetzel | ECON | [address] | | | | | [place] | | | | | [address] | | + + + + + Care Team Providers + +------+ + | Care Dean Of Graduate Studies Name | Role | Phone | + +------+ + | Pcp, Prov Inactive | PCP | | + +------+ + Encounter Details +--------+ + + + + | Date | Type | Department | Care Team | Description | +--------+ + + + + | 07/15/ | Hospital | [facility] | Conversion | Abnormal findings on | | 2019 | Encounter | [facility] | Transaction, | diagnostic imaging | | | | MAMMOGRAPHY [address] | Provider Unknown | of breast | | | | [address] | [phone] | | | | | [place], [place] | | | | | | [address] | | | | | | [phone] | | | +--------+ + + + [...]
--- OUTSIDE RECORDS SUMMARY | ~2019-03-20 | XMS | Encounter Summary ---
Demographics + + + | Address | [address] | | | [place] [address] | + + + | Home Phone | | + + + | Preferred Language | Unknown | + + + | Marital Status | | + + + | Evangelical Affiliation | Unknown | + + + | Race | Unknown | + + + | Ethnic Group | Unknown | + + + Author + + + | Author | [facility] | | | and [place] | + + + | Organization | [facility] | | | and [place] | + + + | Address | Unknown | + + + | Phone | Unavailable | + + + Support + + + + + | Name | Relationship | Address | Phone | + + + + + | Martin Wetzel | ECON | [address] | | | | | [place], [place] | | | | | [address] | | + + + + + Care Team Providers + +------+ + | Care Product Safety Manager Name | Role | Phone | + +------+ + | Terrie Taylor | PCP | | + +------+ + Encounter Details +--------+ + + + + | Date | Type | Department | Care Team | Description | +--------+ + + + + | 11/09/ | Imaging | [facility] | Provider, | | | 2018 | Exam | MED CTR EXTER[facility] | MD [address] | | | | | IMAGING | [address] | | | | | [phone] | [place] [address] | | +--------+ + + + + [...] | + +--------+ + + + | MRI SHOULDER RIGHT | Routin | 11/27/2016 | | Results for this | | ARTHROGRAM W | e | 11:55 AM | | procedure are in the | | CONTRAST | | PDT | | results section. | + +--------+ + + + documented in this encounter Results MRI Shoulder Right Arthrogram w Contrast (11/27/2016 11:55 AM PDT) + + | Specimen | + + | | + + + + + | Narrative | Performed At | + + + | External films for comparison only | [facility] | | | | | No results will be in the chart. | | + + + + +---------+ + + | Performing | Address | City/State/Zipcode | Phone Number | | Organization | | | | + +---------+ + + | [facility] | | | | + +---------+ + + documented in this encounter Visit Diagnoses Not on filedocumented in this encounter"
--- OUTSIDE RECORDS SUMMARY | ~2019-03-20 | XMS | Encounter Summary ---
Demographics + + + | Address | [address] | | | [place] [address] | + + + | Home Phone | | + + + | Preferred Language | Unknown | + + + | Marital Status | | + + + | Buddhist Affiliation | Unknown | + + + | Race | Unknown | + + + | Ethnic Group | Unknown | + + + Author + + + | Author | [facility] | | | and [place] | + + + | Organization | [facility] | | | and [place] | + + + | Address | Unknown | + + + | Phone | Unavailable | + + + Support + + + + + | Name | Relationship | Address | Phone | + + + + + | Martin Wetzel | ECON | [address] | | | | | [place] | | | | | [address] | | + + + + + Care Team Providers + +------+ + | Care R Developer Name | Role | Phone | + +------+ + | Pcp, Prov Inactive | PCP | | + +------+ + Encounter Details +--------+ + + + + | Date | Type | Department | Care Team | Description | +--------+ + + + + | 07/05/ | Hospital | [facility] | Conversion | Unspecified lump in | | 2019 | Encounter | CENTER OPIC | Transaction, | the left breast, | | | | MAMMOGRAPHY [address] | Provider Unknown | lower outer quadrant | | | | [address] | [phone] | | | | | [place], [place] | | | | | | [address] | DavidLing ramirez, | | | | | [phone] | SECURITY CONTROL ASSESSOR [address] | | | | | | [address] | | | | | | [place] | | | | | | [address] | | | | | | [phone] | | | | | | | [...] | lump, right breast screening, Baseline mammogram. [facility] | | [...]
--- OUTSIDE RECORDS SUMMARY | ~2019-03-20 | XMS | Encounter Summary ---
Demographics + + + | Address | [address] | | | [place] [address] | + + + | Home Phone | | + + + | Preferred Language | Unknown | + + + | Marital Status | | + + + | Buddhism Affiliation | Unknown | + + + | Race | Unknown | + + + | Ethnic Group | Unknown | + + + Author + + + | Author | [facility] | | | and [place] | + + + | Organization | [facility] | | | and [place] | + + + | Address | Unknown | + + + | Phone | Unavailable | + + + Support + + + + + | Name | Relationship | Address | Phone | + + + + + | Martin Wetzel | ECON | [address] | | | | | [place] | | | | | [address] | | + + + + + Care Team Providers + +------+ + | Care Corporate Communications Intern Name | Role | Phone | + +------+ + | Pcp, Prov Inactive | PCP | | + +------+ + Encounter Details +--------+ + + + + | Date | Type | Department | Care Team | Description | +--------+ + + + + | 07/05/ | Hospital | [facility] | Conversion | Unspecified lump in | | 2019 | Encounter | CENTER OPIC | Transaction, | the left breast, | | | | MAMMOGRAPHY [address] | Provider Unknown | lower outer quadrant | | | | [address] | [phone] | | | | | [place], [place] | | | | | | [address] | | | | | | [phone] | | | +--------+ + + + [...] Fabien, Rad Conversion - 12/20/2018 10:09 PM [facility] DIGITAL DIAGNOSTIC MAMMOGRAM | | [...]
--- OUTSIDE RECORDS SUMMARY | ~2019-03-20 | XMS | Encounter Summary ---
Demographics + + + | Address | [address] | | | [place] [address] | + + + | Home Phone | | + + + | Preferred Language | Unknown | + + + | Marital Status | | + + + | Sikh Affiliation | Unknown | + + + | Race | Unknown | + + + | Ethnic Group | Unknown | + + + Author + + + | Author | [facility] | | | and [place] | + + + | Organization | [facility] | | | and [place] | + + + | Address | Unknown | + + + | Phone | Unavailable | + + + Support + + + + + | Name | Relationship | Address | Phone | + + + + + | Martin Wetzel | ECON | [address] | | | | | [place] | | | | | [address] | | + + + + + Care Team Providers + +------+ + | Care Turning Machine Set Up Operator Name | Role | Phone | + +------+ + | Unknown, Doctor | PCP | | + +------+ + Reason for Visit + + + | Reason | Comments | + + + | Arm Pain | | + + + Encounter Details +--------+ + + + + | Date | Type | Department | Care Team | Description | +--------+ + + + + | 06/06/ | Emergency | [facility] | Dusty Cotter | Cervical strain, | | 2017 | | MED CTR EM[facility]Y | John Marin MD | acute, subsequent | | | | CENTER [address] | [address] | encounter (Primary | | | | [place], [place] | [place], [place] | Dx); Injury of right | | | | [address] | [address] | rotator cuff, | | | | [phone] | | subsequent encounter | +--------+ + + + + [...] + + + | Blood Pressure | 134/79 | 06/06/2016 3:41 PM | | | | | PST | | + + + + + | Pulse | 105 | 06/06/2016 3:41 PM | | | | | PST | | + + + + + | Temperature | 36.7 C (98.1 F) | 06/06/2016 3:41 PM | | | | | PST | | + + + + + | Respiratory Rate | 16 | 06/06/2016 3:41 PM | | | | | PST | | + + + + + | Oxygen Saturation | 100% | 06/06/2016 3:41 PM | | | | | PST | | + + + + + | Inhaled Oxygen | - | - | | | Concentration | | | | + + + + + | Weight | 68 kg (150 lb) | 06/06/2016 3:41 PM | | | | | PST | | + + + + + | Height | 154.9 cm (5' 1") | 06/06/2016 3:41 PM | | | | | PST | | + + + + + | Body Mass Index | 28.34 | 06/06/2016 3:41 PM | | | | | PST | | + + + + + documented in this encounter Discharge Instructions Instructions Dusty Cotter MD - 06/06/2016Please continue icing her shoulder and neck on and off 20 minutes of every hour. Do range of motion exercises to the neck as well as shoulder. Most likely need to follow-up with orthopedic surgery for further differentiation of your m usculoskeletal injuries. Please follow-up with primary care physician and orthopedic surgery clinic. Take anti-inflammatory medicine (Motrin) to alleviate inflammation. Take pain medication and anxiety medication as needed. documented in this encounter Medications at Time [...] + | Diagnosis | + + | Cervical strain, acute, subsequent encounter - Primary | + + | Injury of right rotator cuff, subsequent encounter | + + documented in this encounter
--- OUTSIDE RECORDS SUMMARY | ~2019-03-20 | XMS | Encounter Summary ---
Demographics + + + | Address | [address] | | | [place] [address] | + + + | Home Phone | | + + + | Preferred Language | Unknown | + + + | Marital Status | | + + + | Mormon Affiliation | Unknown | + + + | Race | Unknown | + + + | Ethnic Group | Unknown | + + + Author + + + | Author | [facility] | | | and [place] | + + + | Organization | [facility] | | | and [place] | + + + | Address | Unknown | + + + | Phone | Unavailable | + + + Support + + + + + | Name | Relationship | Address | Phone | + + + + + | Martin Wetzel | ECON | [address] | | | | | [place] | | | | | [address] | | + + + + + Care Team Providers + +------+ + | Care High School Science Tutor Name | Role | Phone | + [...] | | | | CENTER [address] | [address] | encounter (Primary | | | | [place], [place] | [place], [place] | Dx); Injury of right | | | | [address] | [address] | rotator cuff, | | | | [phone] | | subsequent encounter | +--------+ + [...]
--- OUTSIDE RECORDS SUMMARY | ~2019-03-20 | XMS | Encounter Summary ---
Demographics + + + | Address | [address] | | | [place] [address] | + + + | Home Phone | | + + + | Preferred Language | Unknown | + + + | Marital Status | | + + + | Voodoo Affiliation | Unknown | + + + | Race | Unknown | + + + | Ethnic Group | Unknown | + + + Author + + + | Author | [facility] | | | and [place] | + + + | Organization | [facility] | | | and [place] | + + + | Address | Unknown | + + + | Phone | Unavailable | + + + Support + + + + + | Name | Relationship | Address | Phone | + + + + + | Martin Wetzel | ECON | [address] | | | | | [place] | | | | | [address] | | + + + + + Care Team Providers + +------+ + | Care Medical Researcher Name | Role | Phone | + [...] | | | quadrant of | | [address] Phone: | | | | | left female | | [phone] | | | | | breast, | | Fax: | | | | | unspecified | | [phone] | | | | | estrogen | [...] | | | | | | | NE BREAST | | | | | | | RECONSTRUC W | | | | | | | FREE FLAP | | | | | | | NE IMPLANT | | | | | | [...] | OP [address] | [place] [address] | | | | | [place], [place] | [phone] | | | | | [address] | | | | | | [phone] | | | +--------+---------+ + + + [...] Physician Discharge Summary Patient ID: Pat Wetzel [id number] y.o. 1980 Admit date: 09/14/2018 Discharge [...] - 09/17/2018 2:50 PM PDTDC home to [place], [place]. Ride provided by . Nausea has [...] - 09/14/2018DIEP & MS-TRAM FLAP BREAST RECONSTRUCTION [facility] HOME CARE INSTRUCTIONS Activity: 1. Activity may [...] areas. Dr jairo schroeder tapes with a chair and couch maker on low, after your shower. 2. If [...] row so that you can come to [facility] office to have it removed between scheduled [...] 0700 09/17/18 07 - 09/18/18 0700 Shift 0008-0610 8231-6851 24 Hour Total 5656-4897 4697-7599 24 Hour Total INTAKE P.O. 1960 1960 [...] 0700 09/16/18 0701 - 09/17/18 0700 Shift 5777-9359 5913-8455 24 Hour Total 2507-3125 8412-7173 24 Hour Total INTAKE P.O. 1200 1200 [...] 0700 09/15/18 07 - 09/16/18 0700 Shift 9014-7206 1724-4861 24 Hour Total 0190-9610 6418-2673 24 Hour Total INTAKE P.O. 960 960 [...] [facility] | | | | Performed by [facility] [address] | | SACRED | | | | [address] [place] | | HEART | | | | [address] | | MEDICAL | | | | [...] + + | [facility] | [address] | [place] [address] | | | [facility] | | | | | LABORATORY CERNER [...] | 1.010, 1.015, | | | | [place], | | 1.020, 1.025 | | | [...] | [facility] | | | POC | [facility] [address], | | SACRED | | | | [place] [address] | | HEART | | | |Performed by [facility] [address], [place] [address] | | MEDICAL | | | | [...] + + | [facility] | [address] | [place] [address] | | | [facility] | | | | | LABORATORY FERNANDO [...] | | 09/14/18 at 2030, Apply to [facility] | | | | | | | [...] | | | DAILY, First dose on [facility] 09/15/18 | | PM PDT | | [...]
--- OUTSIDE RECORDS SUMMARY | ~2019-03-20 | XMS | Clinical Summary ---
Demographics + + + | Address | [address] | | | [place] [address] | + + + | Home Phone | | + + + | Preferred Language | Unknown | + + + | Marital Status | | + + + | Protestant Affiliation | Unknown | + + + | Race | Unknown | + + + | Ethnic Group | Unknown | + + + Author + + + | Author | [facility] | | | and [place] | + + + | Organization | [facility] | | | and [place] | + + + | Address | Unknown | + + + | Phone | Unavailable | + + + Support + + + + + | Name | Relationship | Address | Phone | + + + + + | Martin Wetezl | ECON | [address] | | | | | [place] | | | | | [address] | | + + + + + Care Team Providers + +------+ + | Care Dial Marker Name | Role | Phone | + [...] (pT2, pN0, cM0, G3, ER+, | | OH+, HER2-) - Unsigned | + + + [...] / Lot | + +--------+--------+ +--------+--------+--------+ | Inventory Control Manager Anastc Imp 2.0mm - | Generi | Left: | SYNOVIS | | 10/15/ | GEM-27 | | [id number]: Qty: 1 | c | Breast | MICRO CO | | 2022 | 52 / | | on 09/14/2018 by Faraz, | | | ALLIANCE - | | | /[id number] | | Olivia Lopez MD at [facility] | | | SYMA | | | [phone] | | [facility] | | | | | | 6310 | + +--------+--------+ +--------+--------+--------+ | Inventory Control Manager Anastc Imp 3.0mm - | Generi | Right: | SYNOVIS | | 02/14/ | GEM-27 | | [id number]: Qty: 1 | c | | MICRO CO | | 2022 | 54 / | | on 09/14/2018 by Faraz, | | Breast | ALLIANCE - | | | /SP18L | | Olivia Lopez MD at [facility] | | | SYMA | | | [phone] | | [facility] | | | | | | 2850 | + +--------+--------+ +--------+--------+--------+ | Mesh Ultrapro [id number] - | Mesh | Anteri | JJHCS | | 08/15/ | UML1 / | | [id number]: Qty: 1 | | or: | ETHICON | | 2023 | | | on 09/14/2018 by Faraz, | | Abdome | ENDO -ANASTASIA | | | /MMBDL | | Olivia Lopez MD at [facility] | | n | 867 - | | | SA0 | | [facility] | | | ETHE | | | [...] +---------+------+ | [facility] | PHP | [phone] | 12/09/19 | [phone] | | PPO | | PLAN | [...] +--------+ + + | Pat Wetzel | Person | Self | [birth year] | | [address] | | | al/Fam | | 1980 | [phone] | [place] [address] | | | caren | | | 8 (Home) | | + +--------+ +--------+ + + | Pat Wetzel | Third | Self | [birth year] | | [address] | | | Alliance Party | | 1980 | [address] | [place] [address] | | | Liabil | | | 8 (Home) | | | | ity | | | | | + +--------+ +--------+ + + Advance Directives + + + + + | Type | Date Recorded | Patient | Explanation | | | | Associate Financial Representative | | + + + + + | Power of | | | | | Cardboard Inserter | | | | + + + [...]
--- OUTSIDE RECORDS SUMMARY | ~2019-03-20 | XMS | Encounter Summary ---
Demographics + + + | Address | [address] | | | [place] [address] | + + + | Home Phone | | + + + | Preferred Language | Unknown | + + + | Marital Status | | + + + | Congregational Affiliation | Unknown | + + + | Race | Unknown | + + + | Ethnic Group | Unknown | + + + Author + + + | Author | [facility] | | | and [place] | + + + | Organization | [facility] | | | and [place] | + + + | Address | Unknown | + + + | Phone | Unavailable | + + + Support + + + + + | Name | Relationship | Address | Phone | + + + + + | Martin Wetzel | ECON | [address] | | | | | [place], [place] | | | | | [address] | | + + + + + Care Team Providers + +------+ + | Care Sales Representative [employer] Name | Role | Phone | + [...] [address] | | | | | [phone] | [place] [address] | | +--------+ + + + + [...]
--- OUTSIDE RECORDS SUMMARY | ~2019-03-20 | XMS | Encounter Summary ---
Demographics + + + | Address | [address] | | | [place] [address] | + + + | Home Phone | | + + + | Preferred Language | Unknown | + + + | Marital Status | | + + + | Yarsanism Affiliation | Unknown | + + + | Race | Unknown | + + + | Ethnic Group | Unknown | + + + Author + + + | Author | [facility] | | | and [place] | + + + | Organization | [facility] | | | and [place] | + + + | Address | Unknown | + + + | Phone | Unavailable | + + + Support + + + + + | Name | Relationship | Address | Phone | + + + + + | Martin Wetzel | ECON | [address] | | | | | [place] | | | | | [address] | | + + + + + Care Team Providers + +------+ + | Care Behavioral Health Care Coordinator Name | Role | Phone | + +------+ + | Pcp, Prov Inactive | PCP | | + +------+ + Encounter Details +--------+ + + + + | Date | Type | Department | Care Team | Description | +--------+ + + + + | 07/15/ | Hospital | [facility] | Conversion | Abnormal findings on | | 2019 | Encounter | [facility] | Transaction, | diagnostic imaging | | | | MAMMOGRAPHY [address] | Provider Unknown | of breast | | | | [address] | [phone] | | | | | [place], [place] | | | | | | [address] | | | | | | [phone] | | | +--------+ + + + [...] 07/15/181312 Date of Service: 07/15/181309 Status: Signed Crime Laboratory Analyst: Radha Nunez RN (Registered Nurse) Reviewed xanax [...] LABORATORY: The technical component was performed by [facility] | | | [facility], [address] [place] [address] (Card Lacer Jacquard: | | | Bonnie Lizarraga MD; CLIA# [id number]). Professional interpretation was | | | performed by [facility], [facility], [facility] | | | [place] [address] (Card Lacer Jacquard: Aydin | | | Morelia Deleon; CLIA#: [id number]). ADDITIONAL NOTES: | | | Immunohistochemical and/or in situ hybridization studies were | | | performed on this case with the appropriate positive controls that | | | react as expected. This test was developed and its performance | | | characteristics determined by [facility]. It has not been | | | cleared or approved by the U.S. Food and Drug Administration. The | | | FDA has determined that such clearance or approval is not necessary. | | | This test is used for clinical purposes. It should not be regarded | | | as investigational or for research. [facility] is certified | | | under the [...] SP1 and progesterone receptor clone 1E2 by [facility] | | | [facility], [employer] [place], [place]. Detection: HRP Polymer | | | Detection on the [place] [facility] with appropriate controls. | | | Nuclear immunoreactivity of 1% or greater is considered positive by | | | ASCO/CAP guidelines. Internal control cells for ER are | | | positive for A, absent for B. Internal control cells for LA | | | are positive for A, absent for B. A Ki-67 proliferation index is | | | performed, and 500 cells are counted. Technical testing is | | | performed at [facility], [address] [place] [address] | | | (Card Lacer Jacquard: Bonnie Lizarraga MD; CLIA# [id number]). REASON FOR | | | ADDENDUM: To [...] | | | Pathway is performed [place], at the | | | request [...] | | Professional interpretation was performed by [facility], [address] | | | [place] [address] (Card Lacer Jacquard: | | | Brendan Shaffer D.O.; CLIA#: [id number]). REASON FOR ADDENDUM: To | | | [...] | Vysis PathVysion kit was performed [place], | | | on a reflex [...] interpretation was | | | performed by [facility], [address] [place] [address] | | | [place] [address] (Card Lacer Jacquard: Leonel BullardOSharon; CLIA#: | | | [id number]). Diagnostician: Jacek Rico MD Pathologist | | [...]
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
--- OUTSIDE RECORDS SUMMARY | ~2019-03-20 | XMS | Encounter Summary ---
Demographics + + + | Address | [address] | | | [place] [address] | + + + | Home Phone | | + + + | Preferred Language | Unknown | + + + | Marital Status | | + + + | Nondenominational Affiliation | Unknown | + + + | Race | Unknown | + + + | Ethnic Group | Unknown | + + + Author + + + | Author | [facility] | | | and [place] | + + + | Organization | [facility] | | | and [place] | + + + | Address | Unknown | + + + | Phone | Unavailable | + + + Support + + + + + | Name | Relationship | Address | Phone | + + + + + | Martin Wetzel | ECON | [address] | | | | | [place] | | | | | [address] | | + + + + + Care Team Providers + +------+ + | Care Healthcare Network Consultant Name | Role | Phone | + +------+ + | Ling Caballero | PCP | | + +------+ + Encounter Details +--------+ + + + + | Date | Type | Department | Care Team | Description | +--------+ + + + + | 08/03/ | Orders Only | [facility] | Lyn Pierre MD | | | 2019 | | [address] [facility] | [address] | | | | | [place], [place] | [place] | | | | | [address] | [address] | | | | | [phone] | | | +--------+ + + + [...] | + +--------+ + + + | EXTERNAL LAB: [facility] | Routin | 08/03/2018 | | Results for this | | | e | 12:03 PM | | procedure are in the | | | | PDT | | results section. | + +--------+ + + + | REFERRAL SHIPPING | Routin | 08/03/2018 | | Results for this | | | e | 12:03 PM | | procedure are in the | | | | PDT | | results section. | + +--------+ + + + | SEDIMENTATION RATE, | Routin | 08/03/2018 | | Results for this | | AUTOMATED | e | 12:03 PM | | procedure are in the | | | | PDT | | results section. | + +--------+ + + + | LACTATE | Routin | 08/03/2018 | | Results for this | | DEHYDROGENASE | e | 12:03 PM | | procedure are in the | | | | PDT | | results section. | + +--------+ + + + | COMPREHENSIVE | Routin | 08/03/2018 | | Results for this | | METABOLIC PANEL | e | 12:03 PM | | procedure are in the | | | | PDT | | results section. | + +--------+ + + + documented in this encounter Results REFERRAL SHIPPING (08/03/2018 12:03 PM PDT) + + + + + + | Component | Value | Ref Range | Performed | Pathologist | | | | | At | Signature | + + + + + + | TEST | [facility] | | EXTERNAL | | | INFORMATION | | | LAB | | + + + + + + | REFERENCE | [facility] | | EXTERNAL | | | LAB TEST | | | LAB | | | RESULTS | | | | | + + + + + + + + | Specimen | + + | | + + + +---------+ + + | Performing | Address | City/State/Zipcode | Phone Number | | Organization | | | | + +---------+ + + | EXTERNAL LAB | | | | + +---------+ + + Sedimentation rate, automated (08/03/2018 12:03 PM PDT) + +-------+ + + + | Component | Value | Ref Range | Performed | Pathologist | | | | | At | Signature | + +-------+ + + + | Sed Rate | 14 | 0 - 20 mm/h | EXTERNAL | | | | | | LAB | | + +-------+ + + + + + | Specimen | + + | Blood specimen | | (specimen) | + + + +---------+ + + | Performing | Address | City/State/Zipcode | Phone Number | | Organization | | | | + +---------+ + + | EXTERNAL LAB | | | | + +---------+ + + External Lab: CBC (08/03/2018 12:03 PM PDT) + + + + + + | Component | Value | Ref Range | Performed | Pathologist | | | | | At | Signature | + + + + + + | WBC | 8.47 | 3.80 - 11.00 | EXTERNAL | | | | | 10*3/uL | LAB | | + + + + + + | RED CELL | 4.24 | 3.70 - 5.10 | EXTERNAL | | | COUNT | | 10*6/uL | LAB | | + + + + + + | Hgb | 13.6 | 11.3 - 15.5 | EXTERNAL | | | | | g/dL | LAB | | + + + + + + | Hematocrit, | 39.9 | 34.0 - 46.0 % | EXTERNAL | | | POC | | | LAB | | + + + + + + | MCV | 94.2 | 80.0 - 100.0 fL | EXTERNAL | | | | | | LAB | | + + + + + + | MCH | 32.2 | 27.0 - 34.0 pg | EXTERNAL | | | | | | LAB | | + + + + + + | MCHC | 34.1 | 32.0 - 35.5 | EXTERNAL | | | | | g/dL | LAB | | + + + + + + | RDW-CV | 43.8 | 37 - 53 fL | EXTERNAL | | | | | | LAB | | + + + + + + | Platelet | 356 | 150 - 400 | EXTERNAL | | | Count | | 10*3/uL | LAB | | | Plasma | | | | | + + + + + + | MPV | 8.3 | fL | EXTERNAL | | | | | | LAB | | + + + + + + | Differentia | AUTOMATED | | EXTERNAL | | | l Type | | | LAB | | + + + + + + | % Segmented | 61.38 | % | EXTERNAL | | | | | | LAB | | | Neutrophils | | | | | + + + + + + | % | 28.93 | % | EXTERNAL | | | Lymphocytes | | | LAB | | + + + + + + | % Monocytes | 8.40 | % | EXTERNAL | | | | | | LAB | | + + + + + + | % | 0.51 | % | EXTERNAL | | | Eosinophils | | | LAB | | + + + + + + | % Basophils | 0.78 | % | EXTERNAL | | | | | | LAB | | + + + + + + | Absolute | 5.20 | 1.90 - 7.40 | EXTERNAL | | | Segmented | | 10*3/uL | LAB | | | Neutrophils | | | | | + + + + + + | Absolute | 2.45 | 1.00 - 3.90 | EXTERNAL | | | Lymphocytes | | 10*3/uL | LAB | | + + + + + + | Absolute | 0.71 | 0.00 - 0.80 | EXTERNAL | | | Monocytes | | 10*3/uL | LAB | | + + + + + + | Absolute | 0.04 | 0.00 - 0.50 | EXTERNAL | | | Eosinophils | | 10*3/uL | LAB | | + + + + + + | Absolute | 0.07 | 0.00 - 0.10 | EXTERNAL | | | Basophils | | 10*3/uL | LAB | | + + + + + + + + | Specimen | + + | Blood specimen | | (specimen) | + + + +---------+ + + | Performing | Address | City/State/Zipcode | Phone Number | | Organization | | | | + +---------+ + + | EXTERNAL LAB | | | | + +---------+ + + Lactate Dehydrogenase (08/03/2018 12:03 PM PDT) + +-------+ + + + | Component | Value | Ref Range | Performed | Pathologist | | | | | At | Signature | + +-------+ + + + | LDH TOTAL | 134 | 115 - 225 U/L | EXTERNAL | | | | | | LAB | | + +-------+ + + + + + | Specimen | + + | Blood specimen | | (specimen) | + + + +---------+ + + | Performing | Address | City/State/Zipcode | Phone Number | | Organization | | | | + +---------+ + + | EXTERNAL LAB | | | | + +---------+ + + Comprehensive Metabolic Panel (08/03/2018 12:03 PM PDT) + + + + + + | Component | Value | Ref Range | Performed | Pathologist | | | | | At | Signature | + + + + + + | Na | 141 | 135 - 145 | EXTERNAL | | | | | mmol/L | LAB | | + + + + + + | K | 3.9 | 3.5 - 4.9 | EXTERNAL | | | | | mmol/L | LAB | | + + + + + + | Cl | 106 | 99 - 109 mmol/L | EXTERNAL | | | | | | LAB | | + + + + + + | CO2 | 27 | 23 - 32 mmol/L | EXTERNAL | | | | | | LAB | | + + + + + + | Anion Gap | 12 | 5 - 20 mmol/L | EXTERNAL | | | | | | LAB | | + + + + + + | Glucose, | 101 (H) | 65 - 99 mg/dL | EXTERNAL | | | Fasting | | | LAB | | + + + + + + | BUN | 8 | 8 - 25 mg/dL | EXTERNAL | | | | | | LAB | | + + + + + + | Creatinine | 0.58 | 0.50 - 1.00 | EXTERNAL | | | | | mg/dL | LAB | | + + + + + + | BUN/Creatin | 14 | | EXTERNAL | | | ine Ratio | | | LAB | | + + + + + + | Calcium | 9.4 | 8.5 - 10.5 | EXTERNAL | | | | | mg/dL | LAB | | + + + + + + | Protein, | 7.5 | 6.3 - 8.2 g/dL | EXTERNAL | | | Total | | | LAB | | + + + + + + | Albumin | 4.3 | 3.6 - 5.0 g/dL | EXTERNAL | | | | | | LAB | | + + + + + + | Globulin | 3.2 | 1.3 - 4.9 g/dL | EXTERNAL | | | | | | LAB | | + + + + + + | A/G Ratio | 1.3 | 1.0 - 2.4 | EXTERNAL | | | | | | LAB | | + + + + + + | Bilirubin | 0.4 | 0.1 - 1.5 mg/dL | EXTERNAL | | | Total | | | LAB | | + + + + + + | ALP, | 100 | 35 - 115 U/L | EXTERNAL | | | External | | | LAB | | + + + + + + | AST | 17 | 10 - 45 U/L | EXTERNAL | | | | | | LAB | | + + + + + + | ALT | 21 | 10 - 65 U/L | EXTERNAL | | | | | | LAB | | + + + + + + | Estimated | >60Comment: GFR <60: | mL/min/1.73_m2 | EXTERNAL | | | GFR | CHRONIC KIDNEY DISEASE, | | LAB | | | | IF FOUND OVER A 3 MONTH | | | | | | PERIOD. GFR <15: KIDNEY | | | | | | FAILURE. FOR | | | | | | AMERICANS, MULTIPLY THE | | | | | | CALCULATED GFR BY 1.210. | | | | | | This eGFR is calculated | | | | | | using the MDRD IDNH | | | | | | traceable equation. | | | | + + + + + + + + | Specimen | + + | Blood specimen | | (specimen) | + + + +---------+ + + | Performing | Address | City/State/Zipcode | Phone Number | | Organization | | | | + +---------+ + + | EXTERNAL LAB | | | | + +---------+ + + documented in this encounter Visit Diagnoses Not on filedocumented in this encounter"
--- OUTSIDE RECORDS SUMMARY | ~2019-03-20 | XMS | Encounter Summary ---
Demographics + + + | Address | [address] | | | [place] [address] | + + + | Home Phone | | + + + | Preferred Language | Unknown | + + + | Marital Status | | + + + | Muslim Affiliation | Unknown | + + + | Race | Unknown | + + + | Ethnic Group | Unknown | + + + Author + + + | Author | [facility] | | | and [place] | + + + | Organization | [facility] | | | and [place] | + + + | Address | Unknown | + + + | Phone | Unavailable | + + + Support + + + + + | Name | Relationship | Address | Phone | + + + + + | Martin Wetzel | ECON | [address] | | | | | [place] | | | | | [address] | | + + + + + Care Team Providers + +------+ + | Care Maintenance Assistant Name | Role | Phone | + +------+ + | Ling Caballero | PCP | | + +------+ + Encounter Details +--------+ + + + + | Date | Type | Department | Care Team | Description | +--------+ + + + + | 08/03/ | Orders Only | [facility] | Lyn Pierre MD | | | 2019 | | [address] [facility] | [address] | | | | | [place], [place] | [place] | | | | | [address] | [address] | | | | | [phone] | | | +--------+ + + + [...] +--------+ + + + | EXTERNAL LAB: PSYCHIATRIC | Routin | 08/03/2018 | | Results [...] | | | | using the MDRD IDTX | | | | | | traceable [...]
--- OUTSIDE RECORDS SUMMARY | ~2019-03-20 | XMS | Encounter Summary ---
Demographics + + + | Address | [address] | | | [place] [address] | + + + | Home Phone | | + + + | Preferred Language | Unknown | + + + | Marital Status | | + + + | Uatsdin Affiliation | Unknown | + + + | Race | Unknown | + + + | Ethnic Group | Unknown | + + + Author + + + | Author | [facility] | | | and [place] | + + + | Organization | [facility] | | | and [place] | + + + | Address | Unknown | + + + | Phone | Unavailable | + + + Support + + + + + | Name | Relationship | Address | Phone | + + + + + | Martin Wetzel | ECON | [address] | | | | | [place] | | | | | [address] | | + + + + + Care Team Providers + +------+ + | Care Roller Mill Tender Name | Role | Phone | + [...] | | | quadrant of | | [address] Phone: | | | | | left female | | [phone] | | | | | breast, | | Fax: | | | | | unspecified | | [phone] | | | | | estrogen | [...] | | | | | | | [place] BREAST | | | | | | | RECONSTRUC W | | | | | | | FREE FLAP | | | | | | | [place] IMPLANT | | | | | | [...] | OP [address] | [place] [address] | | | | | [place] | [phone] | | | | | [address] | | | | | | [phone] | Quirino Orona MD | | | | | | [address] | | | | | | [place] [address] | | | | | | [phone] | | | | | | | [...] +----+---+ + + | | 0 | [place] | | | | 8 | 43-degrees [...] +----+---+ + + | | 1 | [place] off | | | | 6 | [...] [address] | | anabellel | veyl-jvp-rryzkt catheter system; | Tala Yo RN | [...]
--- OUTSIDE RECORDS SUMMARY | ~2019-03-20 | XMS | Encounter Summary ---
Demographics + + + | Address | [address] | | | [place] [address] | + + + | Home Phone | | + + + | Preferred Language | Unknown | + + + | Marital Status | | + + + | Rastafari Affiliation | Unknown | + + + | Race | Unknown | + + + | Ethnic Group | Unknown | + + + Author + + + | Author | [facility] | | | and [place] | + + + | Organization | [facility] | | | and [place] | + + + | Address | Unknown | + + + | Phone | Unavailable | + + + Support + + + + + | Name | Relationship | Address | Phone | + + + + + | Martin Wetzel | ECON | [address] | | | | | [place], [place] | | | | | [address] | | + + + + + Care Team Providers + +------+ + | Care Hand Cloth Cutter Name | Role | Phone | + [...] [address] | | | | | [phone] | [place] [address] | | +--------+ + + + + [...] + +--------+ + + + | MRI BRAIN W WO | Routin | 08/06/2017 | | Results for this | | CONTRAST | e | 8:20 AM | | procedure are in the | | | | PDT | | results section. | + +--------+ + + + documented in this encounter Results MRI Brain w wo Contrast (08/06/2017 8:20 AM PDT) + + | Specimen | [...]
--- OUTSIDE RECORDS SUMMARY | ~2019-03-20 | XMS | Encounter Summary ---
Demographics + + + | Address | [address] | | | [place] [address] | + + + | Home Phone | | + + + | Preferred Language | Unknown | + + + | Marital Status | | + + + | Yarsanism Affiliation | Unknown | + + + | Race | Unknown | + + + | Ethnic Group | Unknown | + + + Author + + + | Author | [facility] | | | and [place] | + + + | Organization | [facility] | | | and [place] | + + + | Address | Unknown | + + + | Phone | Unavailable | + + + Support + + + + + | Name | Relationship | Address | Phone | + + + + + | Martin Wetzel | ECON | [address] | | | | | [place] | | | | | [address] | | + + + + + Care Team Providers + +------+ + | Care Plastic Tile Setter Name | Role | Phone | + +------+ + | Pcp, Prov Inactive | PCP | | + +------+ + Encounter Details +--------+ + + + + | Date | Type | Department | Care Team | Description | +--------+ + + + + | 08/17/ | Hospital | [facility] | Conversion | Pelvic and perineal | | 2018 | Encounter | [facility] | Transaction, | pain | | | | ULTRASOUND [address] | Provider Unknown | | | | | [address] | [phone] | | | | | [place], [place] | | | | | | [address] | DavidLing ramirez, | | | | | [phone] | [address] | | | | | | [address] | | | | | | [place] | | | | | | [address] | | | | | | [phone] | | | | | | | [...]
--- OUTSIDE RECORDS SUMMARY | ~2019-03-20 | XMS | Encounter Summary ---
Demographics + + + | Address | [address] | | | [place] [address] | + + + | Home Phone | | + + + | Preferred Language | Unknown | + + + | Marital Status | | + + + | Hindu Affiliation | Unknown | + + + | Race | Unknown | + + + | Ethnic Group | Unknown | + + + Author + + + | Author | [facility] | | | and [place] | + + + | Organization | [facility] | | | and [place] | + + + | Address | Unknown | + + + | Phone | Unavailable | + + + Support + + + + + | Name | Relationship | Address | Phone | + + + + + | Martin Wetzel | ECON | [address] | | | | | [place] | | | | | [address] | | + + + + + Care Team Providers + +------+ + | Care Revenue Specialist Name | Role | Phone | + [...] | | | quadrant of | | [address] Phone: | | | | | left female | | [phone] | | | | | breast, | | Fax: | | | | | unspecified | | [phone] | | | | | estrogen | [...] | | | | | | | [place] BREAST | | | | | | | RECONSTRUC W | | | | | | | FREE FLAP | | | | | | | [place] IMPLANT | | | | | | [...] + | 09/14/ | Hospital | [facility] | [place], | | | 2019 - | Encounter | [facility] | MD Cailin POTTS | | | | | ORTHOPEDICS [address] | [place] [address] | | | 09/17/ | | [address] [place], [place] | [phone] | | | 2018 | | [address] | | | | | | [phone] | | | +--------+ + + + [...] Physician Discharge Summary Patient ID: Pat Wetzel [id number] y.o. 1980 Admit date: 09/14/2018 Discharge [...] - 09/17/2018 2:50 PM PDTDC home to [place], [place]. Ride provided by . Nausea has [...] - 09/14/2018DIEP & MS-TRAM FLAP BREAST RECONSTRUCTION [facility] HOME CARE INSTRUCTIONS Activity: 1. Activity may [...] areas. Dr jairo schroeder tapes with a hair weaver on low, after your shower. 2. If [...] 09/17/18 0709/17/18 07 - 09/18/18 07 Shift 4153-3789 3709-4143 24 Hour Total 5116-8289 0218-7326 24 Hour Total INTAKE [address] 1960 1960 [...] 0700 09/16/18 07 - 09/17/18 0700 Shift 8354-5048 9011-9979 24 Hour Total 0368-2021 7819-8256 24 Hour Total INTAKE P.O[address] 1200 1200 [...] 0700 09/15/18 07 - 09/16/18 0700 Shift 8160-6519 7326-7996 24 Hour Total 5811-3767 2123-9781 24 Hour Total INTAKE [address] 960 960 [...] [facility] | | | | Performed by [facility] [address] | | [address]CR[address] | | | | [address] [place] | | HEART | | | | [address] | | MEDICAL | | | | [...] [address] | [place] [address] | | | [facility] | | | | | LABORATORY CERNER [...] | 1.010, 1.015, | | | | [place], | | 1.020, 1.025 | | | [...] | [facility] | | | POC | [facility] [address], | | SACRED | | | | [place] [address] | | HEART | | | |Performed by [facility] [address], [place] [address] | | MEDICAL | | | | [...] + | [facility] | [address] | [place] [address] | | | [facility] | | | | | LABORATORY FERNANDO [...] | | | DAILY, First dose on [facility] 09/15/18 | | PM PDT | [...]
--- OUTSIDE RECORDS SUMMARY | ~2019-03-20 | XMS | Encounter Summary ---
Demographics + + + | Address | [address] | | | [place] [address] | + + + | Home Phone | | + + + | Preferred Language | Unknown | + + + | Marital Status | | + + + | Jehovah'S Witness Affiliation | Unknown | + + + | Race | Unknown | + + + | Ethnic Group | Unknown | + + + Author + + + | Author | [facility] | | | and [place] | + + + | Organization | [facility] | | | and [place] | + + + | Address | Unknown | + + + | Phone | Unavailable | + + + Support + + + + + | Name | Relationship | Address | Phone | + + + + + | Martin Wetzel | ECON | [address] | | | | | [place], [place] | | | | | [address] | | + + + + + Care Team Providers + +------+ + | Care Agriculture Sales Account Manager Name | Role | Phone | [...] [address] | | | | | [phone] | [place] [address] | | +--------+ + + + + [...]
[~2019-03-20 20:26] MED LIST changes: +AMBIEN5 MG PO; +COLACE CLEAR50 MG PO; +CYCLOPHOSPHAMID50 M1; +CYCLOPHOSPHAMID50 M1 PO; +FAMOTIDINE40 MG PO; +FLUOROURAC1 GM/20 ML IV; +METHOTREXA25 MG/1 M7 INJ; +METOCLOPRAMIDE H5 MG PO; +MIDOL220 MG PO; +NORCO 5-325 TA1 EACH PO; +PENICILLIN V P500 MG PO; +ZOFRAN4 MG PO
--- OUTSIDE RECORDS SUMMARY | 2019-03-20 20:28 | XMS ---
PreManage Notification: DAYANA LONGO Security [employer] Manager Events No recent Security Events currently on file CRITERIA MET - Group Notification - [facility] - Has Care Guidelines - PDMP CARE PROVIDERS Ling Caballero Nurse Practitioner: Family Current DIRECTOR OF SURGERY PHONE: Unknown Ling Caballero Treatment Current DIRECTOR OF SURGERY PHONE: Unknown SABINE GRACIA Primary Care 06/10/2016-Current PHONE: [phone] [facility] has no Care Guidelines for this patient. Care History Medical/Surgical 11/24/2018 [facility] - PATIENT ONCOLOGIST IS DR ROSARIO. - 11/24/18 RECENTLY STARTED IV CHEMOTHERAPY. 11/11/2018 [facility] - PATIENT HAS A UROLOGIST-DR LUI- - PATIENT NO SHOWED TO LAST APT WITH DR LUI ON 07/20/18 [place] VISIT COUNT (12 MO.) 4 [facility] TOTAL 4 NOTE: Visits indicate total known visits. ED/UCC VISIT TRACKING (12 MO.) [facility] COMPLAINT: - EAR, EYE AND HEAD PAIN 11/23/2018 21:15 [facility] TYPE: Emergency COMPLAINT: - SORE THROAT DIAGNOSES: - Acute pharyngitis, unspecified - Personal history of malignant neoplasm of breast - Personal history of nicotine dependence - Allergy status to oth drug/meds/biol subst status - Other skilled nursing (current) drug therapy - Personal history of antineoplastic chemotherapy 11/09/2018 05:29 [facility] TYPE: Emergency COMPLAINT: - LOW BACK PAIN/NO INJURY DIAGNOSES: - Other manager long term care (current) drug therapy - Personal history of malignant neoplasm of breast - Unspecified renal colic - Unspecified abdominal pain 06/21/2018 20:15 [facility] TYPE: Emergency COMPLAINT: - L FLANK PAIN DIAGNOSES: - Unspecified abdominal pain - Hydronephrosis with renal and ureteral calculous obstruction INPATIENT VISIT TRACKING (12 MO.) 09/14/2018 05:24 [facility] [place] TYPE: Orthopedic DIAGNOSES: - Malig neoplasm of upper-inner quadrant of left female breast 09/06/2018 13:34 Calli [facility] TYPE: Medical Surgical COMPLAINT: - BILATERAL MASTECTOMY [id number]
== END 2019-03-20 23:25 | disposition home or self-care (01) ==
LOC: ED 20:26
DX: J10.1 Influenza due to other identified influenza virus with other respiratory manifestations (principal); C50.919 Malignant neoplasm of unspecified site of unspecified female breast; F41.9 Anxiety disorder, unspecified; Z88.8 Allergy status to other drugs, medicaments and biological substances; Z79.899 Other long term (current) drug therapy
CPT/HCPCS: 36415; 71046; 85025; 87502; 99285-25

== ENCOUNTER 2019-04-19 06:51 | Day surgery (SDC) | payer OTHER ==
[~2019-04-19] VITALS: Ht 154.9 cm; Wt 72.1 kg
--- NOTE | 2019-04-19 11:02 | NUR ---
04/19/19 1102 Cristina Gimenez 1052- PT TO PACU IN SF POSITION. EYES CLOSED DOES NOT FOLLOW COMMANDS WITH ORAL AIRWAY IN PLACE ON 10 L O2 VIA SIMPLE MASK. BREATHING EASY AND UNLABORED. SP02 >95%. DRESSING CDI. 1100- PT CONTINUES TO SLEEP. NODS HEAD BUT DOES NOT FOLLOW COMMANDS. EYES STILL CLOSED. ORAL AIRWAY REMAINS IN PLACE ON 6 L O2 VIA SIMPLE MASK. BREATHING EASY AND UNLABORED SP02 >895% DRESSING CDI
--- NOTE | 2019-04-19 12:12 | NUR ---
1140 PT BACK TO ROOM FROM PACU. AT BEDSIDE PT AWAKE AND ALERT DENIES PAIN OR NAUSEA.
--- NOTE | 2019-04-19 12:12 | NUR ---
1155 PT UP TO BATHROOM WITH MINIMAL ASSIST. SHE WAS ABLE TO VOID ABOUT 150 ML OF CLEAR YELLOW URINE.
--- NOTE | 2019-04-19 13:01 | OR ---
[facility] [address] [place], [place] [address] Signed DATE OF OPERATION: 04/19/2019 SURGEON: Nikki Felix MD PREOPERATIVE DIAGNOSES: 1. History of breast cancer. 2. Right internal jugular [id number]. POSTOPERATIVE DIAGNOSES: 1. History of breast cancer. 2. Right internal jugular [id number]. PROCEDURE: Removal of right internal jugular [id number]. ESTIMATED BLOOD LOSS: None. INDICATIONS: Pat is a 38-year-old female, who has a history of breast cancer. She has had bilateral reconstruction with her rectus muscles. She does have mesh in her abdominal wall. She has been through her chemotherapy and now is returning to have the nilu-y-ycbbxsad removed. I explained to Pat, her , and daughter the nature of that surgery. We do it under IV sedation with local anesthetic. She understands there is risk including, but not limited to bleeding, infection, scarring, change in contour of the skin as well as air embolization or catheter embolization requiring retrieval. She had expressed understanding and wished to proceed. PROCEDURE NOTE: I met with Pat, her and her daughter in our preop area. After answering their questions, Pat was taken into the operating room. She was placed under monitored anesthesia care. She was then prepped and draped in the usual sterile fashion. She was given preoperative antibiotics along with subcutaneous heparin. SCDs were utilized. She was then prepped and draped in the usual sterile fashion. We injected local anesthetic in and around and underneath the ijne-n-gkwkvyly hub. After this, the incision was opened with the help of a #15 blade knife and carried down around the catheter hub along with the pseudocapsule. The Prolene suture was cut with a #15 blade knife and in order to remove everything en bloc. We placed a 2-0 Prolene pursestring suture around the catheter as it went underneath the adipose tissue. The entire catheter was removed without any resistance whatsoever. The pursestring suture Electronically Signed By: NIKKI FELIX MD 04/19/19 1301 PATIENT NAME: PAT LONGO OPERATIVE REPORT DATE OF : 82 REPORT #: [id number] PHYSICIAN: NIKKI FELIX MD PCP: KELTON ROSARIO MD REPORT IS CONFIDENTIAL AND NOT TO BE RELEASED WITHOUT AUTHORIZATION [facility] [address] [place], [place] [address] Signed was held tight and tied down quite easily with excellent hemostasis. The catheter was inspected and the full length of the catheter had been removed including the tip in the entire hub. The wound was then irrigated and suctioned out until clear. We injected some additional local into the pectoralis muscle underneath. We then closed the dermis with interrupted 3-0 subcuticular Monocryl sutures. The skin edges were reapproximated with a running 5-0 fast absorbing plain gut suture. Dry gauze and tape were then applied. Pat was then transferred to her hospital bed and taken into recovery room in stable condition. Nikki Felix MD ALB/MODL /[id number] cc: MD Kelton Alexis, MD Bianca Tamayo, MD Ling Cutler, FIDEL Copies: NIKKI FELIX MD,KELTON TAMAYO,BIANCA CUTLER,LING PARRA ~ Electronically Signed By: NIKKI FELIX MD 04/19/19 1301 PATIENT NAME: PAT LONGO OPERATIVE REPORT DATE OF : 82 REPORT #: [id number] PHYSICIAN: NIKKI FELIX MD PCP: KELTON ROSARIO MD REPORT IS CONFIDENTIAL AND NOT TO BE RELEASED WITHOUT AUTHORIZATION
--- NOTE | 2019-04-19 13:20 | NUR ---
PT ALERT, ORIENTED AND VERY READY FOR TODAY. PT MENTIONED THAT SHE TOOK HER LAST CHEMO PILL YESTERDAY, NO NEED FOR PORTACATH, ONE STEP CLOSER TO HAVING HER TREATMENT COMPLETED. ALICE WITH HER, HAD PRAYER WITH PT. WILL FOLLOW NEEDED
== END 2019-04-19 12:05 | disposition home or self-care (01) ==
LOC: DS 06:51 → OPS 06:51 → DS 09:00 → OPS 09:00
PROVIDERS: Colon & Rectal Surgery
PROC: 05PY33Z Removal of Infusion Device from Upper Vein, Percutaneous Approach (ICD-10-PCS; 2019-04-19)
PROC: 0JPT0XZ Removal of Tunneled Vascular Access Device from Trunk Subcutaneous Tissue and Fascia, Open Approach (ICD-10-PCS; principal; 2019-04-19 09:00)
DX: Z45.2 Encounter for adjustment and management of vascular access device (principal); C50.912 Malignant neoplasm of unspecified site of left female breast; F32.9 Major depressive disorder, single episode, unspecified; K21.9 Gastro-esophageal reflux disease without esophagitis; F41.9 Anxiety disorder, unspecified; Z79.899 Other long term (current) drug therapy; Z88.8 Allergy status to other drugs, medicaments and biological substances; Z98.890 Other specified postprocedural states
CPT/HCPCS: J0690; J1100; J1644; J1885; J2250; J2405; J2704; J2765; J3010; J7121